=== PATIENT | female | born 1990 | race Caucasian/White ===

== ENCOUNTER 2019-02-18 13:38 | Outpatient (CLI) | payer OTHER, SELFPAY ==
[2019-02-18 15:27] LABS: Basophils % 0.1 %; Eosinophils # 0.2 10^3/uL (0.0-0.8); Eosinophils % 1.9 %; Hematocrit 37.8 % (37.0-47.0); Hemoglobin 12.6 g/dL (11.5-15.3); Lymphocytes % 19.2 %; Mean Corpuscular HGB Conc 33.3 g/dL (30.0-36.0); Mean Corpuscular Hemoglobin 30.1 pg (28.0-34.0); Mean Corpuscular Volume 90.2 fL (81-99); Mean Platelet Volume 9.9 fL (7.4-10.4); Monocytes # 0.5 10^3/uL (0.2-0.9); Monocytes % 4.8 %; Neutrophils # 7.8 10^3/uL (1.8-7.7); Neutrophils % 73.4 %; Nucleated Red Blood Cells % 0 %; Platelet Count 382 10^3/cmm (130-400); Red Blood Count 4.19 10^6/uL (4.1-5.3); Red Cell Distribution Width 12.9 % (12.1-15.1); White Blood Count 10.6 10^3/uL (4.0-10.0)
[2019-02-18 15:47] VITALS: BMI 44.9
[2019-02-18 16:12] LABS: Alanine Aminotransferase 15 U/L (0-33); Albumin Level 3.4 g/dL (3.5-5.2); Alkaline Phosphatase 89 IU/L (35-105); Anion Gap 17.6 (5-19); Aspartate Amino Transferase 14 U/L (0-32); Blood Urea Nitrogen 4 mg/dL (6-20); Calcium 9.4 mg/Dl (8.6-10.0); Carbon Dioxide 20 mmol/L (22-29); Chloride 101 mmol/L (98-107); Globulin 3.2 g/dL (1.3-4.6); Glomerular Filtration Rate 192.9 mL/min (90-130); Glucose 86 mg/dL (74-109); Potassium 3.6 mmol/L (3.5-5.1); Sodium 135 mmol/L (136-145); Thyroid Stimulating Hormone 2.03 uIU/mL (0.27-4.20); Total Bilirubin 0.3 mg/dL (0.15-1.2); Total Protein 6.6 g/dL (6.6-8.7); Uric Acid 3.7 mg/dL (2.4-5.7)
[2019-02-18 16:23] LABS: Glucose Urine UA Norm (Normal); Ketones Urine 1+ (Negative); Protein Urine Neg (Negative); Urine Appearance Cloudy (CLEAR); Urine Color Yellow (Yellow); pH Urine 5 (5-7)
[2019-02-18 16:24] LABS: Bilirubin Urine 1+ (NEGATIVE); Blood Urine Neg (Negative); Nitrate Urine Negative (Negative); Urobilinogen Urine 1 mg/dL (Negative)
[2019-02-18 16:25] LABS: Add Urine Microscopic? YES; Amorphous Sediment Urine 4+; Bacteria Urine 1+; Leukocyte Esterase Urine Negative (Negative)
[2019-02-18 16:26] LABS: Add Urine Culture? No; Coarse Granular Casts Urine 0-4 /lpf
[2019-02-18 16:39] LABS: Urine Creatinine 340 mg/dL (28-217)
[2019-02-18 16:44] VITALS: BP 112/69; PULSE 90
[2019-02-18 16:59] VITALS: BP 113/70; PULSE 96
[2019-02-18 17:24] LABS: UPRO/UCREAT Ratio 0.07 mg/mg CR; Urine Protein Random 24 mg/dL
[2019-02-18 17:25] VITALS: BP 113/70; PULSE 96; RESP 16; TEMP 36.9
== END 2019-02-18 17:03 | disposition home or self-care (01) ==
PROVIDERS: Family Provider Family Medicine; PCP Family Medicine; Visit Provider Family Medicine
DX: O16.9 Unspecified maternal hypertension, unspecified trimester (principal); Z3A.00 Weeks of gestation of pregnancy not specified
CPT/HCPCS: 36415; 80053; 81003; 82570; 84156; 84443; 84550; 85025

== ENCOUNTER 2019-03-05 07:46 | Outpatient (CLI) | payer OTHER, SELFPAY ==
--- NOTE | 2019-03-05 08:00 | US_ITS ---
WS: [id number] LIMITED OBSTETRICAL ULTRASOUND HISTORY: GESTATIONAL DIABETES/FOLLOW UP GROWTH CHECK COMPARISON: 12/11/2018, 01/17/2019 at 02/04/2019 Presentation: Vertex. Cervix: Closed and normal length. 5.0 cm in length. Placenta: Posterior, no previa or abruption. Grade: 1 HEART: FHR of 138 BPM. measurements: BPD = 8.0 cm = 31w6d HC = 29.4 cm = 32w3d AC = 28.2 cm = 32w2d FL = 6.2 cm = 32w0d Visually normal amount of amniotic fluid. EFW: 1916 g; 57 %. AGA by ultrasound: 32w1d MARLON by ultrasound: 04/29/2019 Appropriate growth since the second trimester ultrasound. US/[place] [id number] IMPRESSION: 1. Single intrauterine gestation of 32 weeks 1 day with an EDC of 04/29/2019. 2. Appropriate growth since the second trimester ultrasound of 12/11/2018 ic h is the initial ultrasound evaluation for comparison purposes. 3. No macrosomia. 4. Normal weight at the 57th percentile for age.
== END 2019-03-05 07:47 | disposition home or self-care (01) ==
LOC: RAD 07:48
PROVIDERS: Family Provider Family Medicine; PCP Family Medicine; Visit Provider Family Medicine
DX: O24.419 Gestational diabetes mellitus in pregnancy, unspecified control (principal); Z3A.32 32 weeks gestation of pregnancy
CPT/HCPCS: 76816

== ENCOUNTER 2019-04-07 13:50 | Outpatient (CLI) | payer OTHER, SELFPAY ==
[2019-04-07 13:50] VITALS: BMI 46.5
[2019-04-07 14:08] VITALS: BP 119/69; PULSE 105; RESP 17; TEMP 36.6
[2019-04-07 14:23] VITALS: BP 108/59; PULSE 110; RESP 16
== END 2019-04-07 14:42 | disposition home or self-care (01) ==
PROVIDERS: Family Provider Family Medicine; PCP Family Medicine; Visit Provider Family Medicine
DX: O24.419 Gestational diabetes mellitus in pregnancy, unspecified control (principal); Z3A.00 Weeks of gestation of pregnancy not specified
CPT/HCPCS: 59025; 99211

== ENCOUNTER 2019-04-09 08:54 | Outpatient (CLI) | payer OTHER, SELFPAY ==
--- NOTE | 2019-04-09 08:59 | US_ITS ---
WS: [id number] LIMITED OBSTETRICAL ULTRASOUND HISTORY: GESTATIONAL DIABETES COMPARISON: 03/05/2019, 12/11/2018 Presentation: Cephalic. Cervix: Closed and normal length. Placenta: Posterior, no previa or abruption. Grade: 2 HEART: FHR of 133 BPM. measurements: BPD = 9.2 cm = 37w3d HC = 32.9 cm = 37w3d AC = 33.5 cm = 37w3d FL = 7.3 cm = 37w3d Amniotic fluid index is normal visually. EFW: 3205 g; 76rd %. AGA by ultrasound: 37w3d MARLON by ultrasound: 04/27/2019 Measurements are internally concordant. Appropriate growth since the second trimester ultrasound that was the initial ultrasound performed for review. [place] [id number] IMPRESSION: 1. Single intrauterine gestation of 37 weeks 3 days and EDC of 04/27/2019. 2. Normal growth with no asymmetry or macrosomia. 3. weight at the 76th percentile for age.
== END 2019-04-09 08:55 | disposition home or self-care (01) ==
LOC: RAD 08:56
PROVIDERS: Family Provider Family Medicine; PCP Family Medicine; Visit Provider Family Medicine
DX: O24.419 Gestational diabetes mellitus in pregnancy, unspecified control (principal); Z3A.37 37 weeks gestation of pregnancy
CPT/HCPCS: 76816

== ENCOUNTER 2019-04-10 17:35 | Outpatient (CLI) | payer OTHER, SELFPAY ==
[2019-04-10 17:52] VITALS: BP 105/54; PULSE 96
[2019-04-10 17:55] VITALS: BMI 47.5
== END 2019-04-10 18:33 | disposition home or self-care (01) ==
PROVIDERS: Family Provider Family Medicine; PCP Family Medicine; Visit Provider Family Medicine
DX: O24.419 Gestational diabetes mellitus in pregnancy, unspecified control (principal); Z3A.00 Weeks of gestation of pregnancy not specified
CPT/HCPCS: 59025; 99211

== ENCOUNTER 2019-04-14 17:35 | Outpatient (CLI) | payer OTHER, SELFPAY ==
[2019-04-14 18:27] VITALS: BP 126/65; PULSE 101; RESP 18; TEMP 36.7; BMI 47.0
[2019-04-14 18:28] VITALS: BP 0/0; BP 124/81; BP 126/65; PULSE 101; PULSE 94
== END 2019-04-14 17:36 | disposition home or self-care (01) ==
LOC: OPOB 17:50
PROVIDERS: Family Provider Family Medicine; PCP Family Medicine; Visit Provider Family Medicine
DX: O24.419 Gestational diabetes mellitus in pregnancy, unspecified control (principal); Z3A.00 Weeks of gestation of pregnancy not specified
CPT/HCPCS: 59025

== ENCOUNTER 2019-04-19 19:53 | Observation (INO) | payer OTHER, SELFPAY ==
[2019-04-19 20:10] VITALS: TEMP 37
[2019-04-19 20:18] VITALS: BP 124/64; PULSE 105
[2019-04-19 21:18] VITALS: BP 116/74; PULSE 102
[2019-04-19] MEDS: miSOPROStol 100 mcg tablet 25 MCG VAGINAL (21:23)
[2019-04-19 21:37] LABS: Basophils % 0.1 %; Eosinophils # 0.1 10^3/uL (0.0-0.8); Eosinophils % 1.2 %; Hematocrit 38.4 % (37.0-47.0); Hemoglobin 12.6 g/dL (11.5-15.3); Lymphocytes # 2.2 10^3/uL (0.8-4.8); Lymphocytes % 20.1 %; Mean Corpuscular HGB Conc 32.8 g/dL (30.0-36.0); Mean Corpuscular Hemoglobin 29.3 pg (28.0-34.0); Mean Corpuscular Volume 89.3 fL (81-99); Mean Platelet Volume 10.1 fL (7.4-10.4); Monocytes # 0.5 10^3/uL (0.2-0.9); Monocytes % 4.8 %; Neutrophils % 73.3 %; Nucleated Red Blood Cells % 0 %; Platelet Count 354 10^3/cmm (130-400)
[2019-04-19 21:48] VITALS: BP 113/69; PULSE 94
[2019-04-19 22:12] VITALS: BMI 42.9
[2019-04-19 22:18] VITALS: BP 123/80; PULSE 85
[2019-04-19 22:51] LABS: Glucose Point of Care 94 mg/dL (70-110)
[2019-04-19 23:30] VITALS: BP 130/71; PULSE 93
[2019-04-20] VITALS (18 sets, daily range): BP systolic 0–145; BP diastolic 0–88; PULSE 67–107; RESP 18; TEMP 36.5–36.9
[2019-04-20] MEDS: lactated ringers 1,000 ML 125 ML IV (04:45)
[2019-04-20 06:55] LABS: Glucose Point of Care 87 mg/dL (70-110)
[2019-04-20 08:21] LABS: Glucose Point of Care 124 mg/dL (70-110)
[2019-04-20] MEDS: miSOPROStol 100 mcg tablet 25 MCG VAGINAL (08:26)
--- NOTE | 2019-04-20 12:30 | PM.OBGYHP ---
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 She presented last evening at 38-1/2 weeks gestation for cervical ripening and induction of labor secondary to gestational diabetes requiring insulin. Her course has also been complicated by obesity, hypothyroidism, symptomatic cholelithiasis and rubella nonimmune status. She is done very well with her weight having gained less than 15 pounds. She has been on 10 units of Levemir twice daily with good control. testing has been reassuring, and her 36-week growth scan revealed an estimated weight of 7-1/2 pounds. She has not had any contractions nor bleeding or leakage of fluid. Present Details : 1 Para: 0 Date of Last Menstrual Period: 07/23/18 Calculated Date of Delivery: 04/29/19 Gestational Age Based on Last Menstrual Period: 38 Dating criteria OB: LMP confirmed by 2nd trimester US care: good care Ultrasounds: normal mid trimester US Obstetrical complications: gestational diabetes (Requiring insulin) Medical complications OB: gastrointestinal (Symptomatic cholelithiasis) and other (Obesity, hypothyroidism) Labs Blood type OB HPI: O (+) positive Rubella: Non-Immune RPR: Negative GBS: Negative HBsAG: Negative Other Lab Information: Antibody screen: Negative Hemoglobin: Initially 14.3, 28-week recheck 12.3 Platelets: 435 Urine culture: Negative TSH: First trimester 3.22, most recent 1 not listed but within guidelines for third trimester Hepatitis C antibody: Negative HIV screen: Negative Pap: Normal GC/Chlamydia: Negative/negative Quad screen: Negative 1 hour GTT: Requiring 3-hour diagnostic testing 3-hour GTT: Fasting 102, 1 hour 235, 2-hour 169, 3-hour 89 Review of Systems Const: Denies: fever : Denies: vaginal odor, vaginal bleeding, vaginal discharge or pelvic pain Medications/Allergies Home Medications Medication Instructions Recorded Confirmed Last Taken Type Levemir U-100 Insulin 10 unit SUBCUT BID 04/20/19 04/20/19 04/20/19 10:30 History Allergies Allergy/AdvReac Type Severity Reaction Status Date / Time No Known Allergies Allergy Verified 02/18/19 15:50 [facility] FOREST ECOLOGIST Medical History (Updated 04/20/19 @ 12:53 by Mary Allan MD) Anxiety disorder Depression Hypothyroidism Obesity Symptomatic cholelithiasis Surgical History H/O adenoidectomy History of oral surgery Social History Smoking and tobacco status: never smoked Alcohol intake: never Household members: spouse Current occupational status: employed History History 1 Term 0 Miscarriages/Ectopic 0 0 Living Children 0 Vitals/I&O/Wt Last Vital Signs Temp 98.5 F 04/20/19 10:30 Pulse 91 04/20/19 12:21 Resp 18 04/20/19 10:30 BP 145/88 04/20/19 12:21 Weight last 48 hrs Weight 274 lb Physical Exam Narrative: EXAM NARRATIVE: heart tones have a baseline in the 120s with moderate variability, many accelerations and no decelerations. Patient had no contractions upon arrival last evening. Please refer to record for complete history and physical. Const: COMMON NORMALS: no apparent distress, oriented x3 and alert NUTRITIONAL APPEARANCE: obese morbidly obese : MANUAL OB EXAM: dilated 1 cm, effaced (20%), station high and other (Ballotable) Neuro: COMMON NORMALS: oriented x3 SENSORIUM/ORIENTATION: Yes alert Psych: COMMON NORMALS: mental status grossly normal, thought process normal, cooperative, affect normal, speech normal and activity/motor behavior normal SPEECH: Yes normal speech THOUGHT PROCESS: normal thought process Data : 04/19/19 21:30 A&P Assessment and plan (1) Encounter for induction of labor: Cytotec x2 with the low-dose morphine Phenergan sleeper as needed. All of this was discussed in her office appointment prior to her arrival in the labor room. Status: Acute Code(s): Z34.90 - Encounter for supervision of normal , unspecified, unspecified trimester (2) 38 weeks gestation of : Status: Acute Code(s): Z3A.38 - 38 weeks gestation of (3) Gestational diabetes mellitus in , insulin controlled: Patient will continue with her self-monitoring of blood glucose as she would at home as long as she continues to eat. She took her Levemir last evening as per her home regimen and will check her bedside glucose 1 hour after each meal and fasting with the goals of less than or equal to 140 and less than or equal to 90 respectively. Once she is actively laboring we will alter her p.o. status and will check bedside glucose every 2-4 hours depending on level of control. Status: Acute Code(s): O24.414 - Gestational diabetes mellitus in , insulin controlled (4) Obesity complicating in third trimester: Patient gained less than 15 pounds during her . Status: Acute Code(s): O99.213 - Obesity complicating , third trimester (5) Hypothyroidism affecting in third trimester: TSH has been within goal range for each trimester and will be checked . Status: Acute Code(s): O99.283 - Endocrine, nutritional and metabolic diseases complicating , third trimester; E03.9 - Hypothyroidism, unspecified (6) Rubella non-immune status, antepartum: Rubella immunization planned Status: Acute Code(s): O99.89 - Other specified diseases and conditions complicating , childbirth and the puerperium; Z28.3 - Underimmunization status (7) Anxiety with depression: Patient stopped her Wellbutrin and BuSpar when she found out she was and has elected not to take anything during the and has been stable. We plan sertraline as she plans to breast-feed. Status: Acute Code(s): F41.8 - Other specified anxiety disorders (8) Nausea and vomiting of , antepartum: This began as simple nausea and vomiting of but then has also been complicated by intermittent symptomatic cholelithiasis for which she has seen [facility]. They plan cholecystectomy sometime after delivery if still symptomatic. Status: Acute Code(s): O21.9 - Vomiting of , unspecified Attestations Medical Necessity Statement*: As patient is receiving Cytotec for cervical ripening she will require observation stay overnight. Coding Level of Care Code Acute Pumper Hand for Cameron Flores Diagnoses Encounter for induction of labor Z34.90 38 weeks gestation of Z3A.38 Gestational diabetes mellitus in , insulin controlled O24.414 Obesity complicating in third trimester O99.213 Hypothyroidism affecting in third trimester O99.283; E03.9 Rubella non-immune status, antepartum O99.89; Z28.3 Anxiety with depression F41.8 Nausea and vomiting of , antepartum O21.9
--- NOTE | 2019-04-20 12:58 | P.DS_ITS ---
Discharge Providers POWDERER Date of Admission: 04/19/19 19:53 Date of Discharge: 04/20/19 Attending Provider at Admission: Mary Allan MD Attending Provider at Discharge: Mary Allan MD Primary Care Provider: Mary Allan MD Diagnoses at Discharge Discharge Diagnosis (1) Encounter for induction of labor: Status: Acute (2) 38 weeks gestation of : Status: Acute (3) Gestational diabetes mellitus in , insulin controlled: Status: Acute (4) Obesity complicating in third trimester: Status: Acute (5) Hypothyroidism affecting in third trimester: Status: Acute (6) Rubella non-immune status, antepartum: Status: Acute (7) Anxiety with depression: Status: Acute (8) Nausea and vomiting of , antepartum: Status: Acute Reason for Visit Reason for Visit: Reason For Visit: induction Hospital Course Hospital Course: Patient arrived last evening for cervical ripening and induction of labor secondary to her gestational diabetes requiring insulin. She took her evening Levemir dose of 10 units last evening and then received a dose of Cytotec vaginally. She began sravan fairly regularly although mildly bu t did not qualify for a second dose of Cytotec until this morning. Meanwhile she took the low-dose Phenergan morphine sleeper but was still unable to rest much. The first dose of Cytotec brought no cervical change. This morning she ate breakfast and blood sugar after her breakfast was 120s. Patient then had a second dose of Cytotec placed this morning and continued to contract every 2 minutes, again of somewhat mild intensity rating them a 5 out of 10. She is tired. Upon cervical exam she had made no cervical change with the second dose of Cytotec. Baby's heart rate tracing remained category 1 throughout her stay. Discharge Summary: Since she had had 2 doses of Cytotec with essentially no cervical change and her cervix at a tight 1 cm, 20% effaced high and ballotable, her options included continuing with another dose of Cytotec providing her contractions spaced out a bit more versus going home to rest with close outpatient follow-up. Patient had no problems deciding that she would like to go home and see me in the office on Monday April 22, 2019 for further evaluation. Physical Exam Narrative: EXAM NARRATIVE: heart tones remained category 1. : MANUAL OB EXAM: dilated 1 cm, effaced (20%) and station high (And ballotable) Discharge Data Data Completed and Pending: Labs from last 24 hours 04/20/19 04/20/19 04/19/19 08:18 06:51 22:42 WBC RBC Hgb Hct MCV MCH MCHC RDW Plt Count MPV Neut % (Auto) Lymph % (Auto) [place] % (Auto) Eos % (Auto) Baso % (Auto) Neut # (Auto) Lymph # (Auto) [place] # (Auto) Eos # (Auto) Baso # (Auto) Nucleated RBC % (a uto) Nucleated RBCs # POC Glucose 124 87 94 04/19/19 21:30 WBC 11.0 H RBC 4.30 Hgb 12.6 Hct 38.4 MCV 89.3 MCH 29.3 MCHC 32.8 RDW 13.0 Plt Count 354 MPV 10.1 Neut % (Auto) 73.3 Lymph % (Auto) 20.1 [place] % (Auto) 4.8 Eos % (Auto) 1.2 Baso % (Auto) 0.1 Neut # (Auto) 8.0 H Lymph # (Auto) 2.2 [place] # (Auto) 0.5 Eos # (Auto) 0.1 Baso # (Auto) 0.0 Nucleated RBC % (a uto) 0 Nucleated RBCs # 0.0 POC Glucose Vitals: Last Vital Signs Temp 98.5 F 04/20/19 10:30 Pulse 93 04/20/19 12:46 Resp 18 04/20/19 10:30 BP 135/81 04/20/19 12:46 Discharge Plan Discharge Patient Disposition: Home, Self-Care Condition: Stable Prescriptions: Continued prenat.vits,ovidio,yto-hiou-zwatg Tablet 1 tab PO ONCE RF: 0 Bonjesta 20-20 mg tablet,IR,delayed rel,biphasic 1 - 2 tab PO .HS RF: 0 levothyroxine 25 mcg capsule 25 mcg PO ONCE RF: 0 Levemir U-100 Insulin 100 unit/mL Solution 10 unit SUBCUT BID RF: 0 Discharge Orders: Discharge Order (Routine); Ordered 04/20/19 Ordered By: Mary Allan Referrals: Mary Allan MD [Primary Care Provider] - (CALL Sunday AND MAKE APPOITMENT FOR Sunday.) Discharge Diet: Diabetic Discharge Activity: Resume usual activity Patient Instructions: OB Undelivered Discharge Discharge Attestations POWDERER Time Spent in Discharge Care*: less than 30 min Specific Discharge Activities: Specific discharge activities: educating patient, documenting/other paperwork and evaluating patient/reviewing data Status at Discharge: Cognitive status at discharge: cognitively intact , Behavioral status at discharge: cooperative , Functional status at discharge: independent ambulation Overall status at discharge: patient is progressing back to baseline (She is having mild contractions which are becoming less frequent.) Coding Level of Care Code Acute Course Developer for Chg Fwd Diagnoses Encounter for induction of labor Z34.90 38 weeks gestation of Z3A.38 Gestational diabetes mellitus in , insulin controlled O24.414 Obesity complicating in third trimester O99.213 Hypothyroidism affecting in third trimester O99.283; E03.9 Rubella non-immune status, antepartum O99.89; Z28.3 Anxiety with depression F41.8 Nausea and vomiting of , antepartum O21.9
== END 2019-04-20 13:00 | disposition home or self-care (01) | DRG 833 ==
PROVIDERS: Admitting Provider Family Medicine; Family Provider Family Medicine; PCP Family Medicine; Visit Provider Family Medicine
DX: O61.0 Failed medical induction of labor (principal); Z3A.38 38 weeks gestation of pregnancy; O99.343 Other mental disorders complicating pregnancy, third trimester; O99.213 Obesity complicating pregnancy, third trimester; O99.283 Endocrine, nutritional and metabolic diseases complicating pregnancy, third trimester; O24.414 Gestational diabetes mellitus in pregnancy, insulin controlled; E03.9 Hypothyroidism, unspecified; F41.8 Other specified anxiety disorders; O21.9 Vomiting of pregnancy, unspecified
CPT/HCPCS: 12345; 36415; 36416; 59025; 82962; 85025; 96372; 99211; G0378; G0379; J1815

== ENCOUNTER 2019-04-23 06:55 | Inpatient (IN) | payer OTHER, SELFPAY ==
[2019-04-23] VITALS (127 sets, daily range): BP systolic 0–160; BP diastolic 0–90; PULSE 67–135; RESP 14–20; TEMP 36.6–37.2; O2SAT 94–100; BMI 42.9
[2019-04-23 08:33] LABS: Glucose Point of Care 113 mg/dL (70-110)
[2019-04-23] MEDS: dextrose 5%-lactated ringers 1,000 ML 125 ML IV (08:46)
[2019-04-23] MEDS: oxytocin 30 UNIT/500 ML BAG IV (08:48)
--- NOTE | 2019-04-23 09:09 | P.HP_ITS ---
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 She presents at 39-1/7-week gestation for induction of labor secondary to gestational diabetes requiring insulin. Patient was here in the labor room the evening of 04/19/2019 and received 2 doses of Cytotec that evening in the financial reporting director hours of 04/20/2019. She experienced minimal cervical change and had contracted too frequently to receive another dose during that time. Given the lack of cervical change she elected to go home and rest. She then return to clinic the morning of 04/22/2019 and was found to be 2-1/2 to 3 cm dilated, 90% effaced and -3 station and sravan with decreased frequency and intensity from when she was discharged the morning of 04/20/2019. Aside from her gestational diabetes requiring insulin, her course has been complicated by obesity in , hypothyroidism and nausea and vomiting of , some of which can be attributed to symptomatic cholelithiasis. Present Details : 1 Para: 0 Date of Last Menstrual Period: 07/23/18 Calculated Date of Delivery: 04/29/19 Gestational Age Based on Last Menstrual Period: 39 Dating criteria OB: LMP confirmed by 2nd trimester US care: good care Ultrasounds: normal mid trimester US Obstetrical complications: gestational diabetes Medical complications OB: gastrointestinal (Intermittently symptomatic cholelithiasis), psychiatric (Anxiety and depression) and other (Obesity, hypothyroidism) Review of Systems Const: Denies: fever : Reports: pelvic pain (Consistent with intermittent contractions since 3 AM this morning); Denies: vaginal odor, vaginal bleeding or vaginal discharge Medications/Allergies Allergies Allergy/AdvReac Type Severity Reaction Status Date / Time No Known Allergies Allergy Verified 04/23/19 09:18 [facility] RADIATION ONCOLOGY MANAGER Medical History (Updated 04/23/19 @ 09:31 by Mary Allan MD) Anxiety disorder Depression Hypothyroidism Obesity Symptomatic cholelithiasis Surgical History H/O adenoidectomy History of oral surgery Family History Grandfather Cancer Colon cancer Other Diabetes Heart disease Denies family history of Anesthesia complication Bleeding disorder Social History Smoking and tobacco status: never smoked Alcohol intake: never Household members: spouse Current occupational status: employed History History 1 Term 0 Miscarriages/Ectopic 0 0 Living Children 0 Vitals/I&O/Wt Last Vital Signs Pulse 94 04/23/19 08:56 BP 127/80 04/23/19 08:56 Physical Exam Narrative: EXAM NARRATIVE: heart tones are category 1 with a normal baseline, moderate variability, many accelerations and no decelerations. Patient has spontaneous contractions which are irregular and mild to moderate. For complete physical examination please refer to her record. Const: COMMON NORMALS: no apparent distress, oriented x3, healthy appearing, alert and well nourished : MANUAL OB EXAM: dilated 3 cm, effaced (95%), station -1 and other (Vertex) Neuro: COMMON NORMALS: oriented x3 SENSORIUM/ORIENTATION: Yes alert Psych: COMMON NORMALS: mental status grossly normal, thought process normal, cooperative, affect normal, speech normal and activity/motor behavior normal SPEECH: Yes normal speech THOUGHT PROCESS: normal thought process Data Other Labs: INITIAL LABS: Blood Type: O+ D (Rh) Type: Positive Antibody Screen: Negative HCT/HBG: Initially over 14 and on 26 to 28-week recheck greater than 12 Pap Test: Normal Rubella: Nonimmune VDRL: Negative Urine Culture/Screen: Negative HBsAg: Negative HIV Counseling/Testing: Negative Influenza Shot: [] Hepatitis C: Negative Chlamydia: Negative GC: Negative MSAFP/Multiple Markers: Negative Diabetes Screen: Greater than 140 3 hour GTT (if screen abnormal): Diagnostic for gestational diabetes Tdap: Received Group B Strep (35-37 weeks): Negative A&P Assessment and plan (1) 39 weeks gestation of : Status: Acute Code(s): Z3A.39 - 39 weeks gestation of (2) Encounter for induction of labor: Patient has been sravan irregularly spontaneously since 3 AM this morning. She is made some cervical change since her exam yesterday in clinic. Therefore, this is more of an augmentation of her labor then a true induction. We will augment with Pitocin. We have discussed pain medication including fentanyl as well as an epidural. Patient is stated that she would like an epidural when the time comes. She denies need for anything at this point. Status: Acute Code(s): Z34.90 - Encounter for supervision of normal , unspecified, unspecified trimester (3) Gestational diabetes mellitus in , insulin controlled: Patient took her Levemir last evening and then held it this morning. Her post breakfast glucose was 113, so we held her Levemir this morning in anticipation of her not having much more p.o. prior to delivery. We will check a bedside glucose every 4 hours with a goal of keeping it less than 120. Status: Acute Code(s): O24.414 - Gestational diabetes mellitus in , insulin controlled (4) Anxiety with depression: Patient has not been on any medication for her anxiety and depression by her choice. However, once she delivers we are planning sertraline as she plans to breast-feed. Status: Acute Code(s): F41.8 - Other specified anxiety disorders (5) Rubella non-immune status, antepartum: Rubella immunization Status: Acute Code(s): O99.89 - Other specified diseases and conditions complicating , childbirth and the puerperium; Z28.3 - Underimmunization status (6) Hypothyroidism affecting in third trimester: TSH has been within goal range per trimester throughout her , and we plan to check it again . Status: Acute Code(s): O99.283 - Endocrine, nutritional and metabolic diseases complicating , third trimester; E03.9 - Hypothyroidism, unspecified (7) Obesity complicating in third trimester: Patient has gained less than 15 pounds during this . Status: Acute Code(s): O99.213 - Obesity complicating , third trimester (8) Nausea and vomiting of , antepartum: We will treat any nausea and vomiting should it occur during her labor. Status: Acute Code(s): O21.9 - Vomiting of , unspecified Attestations Medical Necessity Statement*: As patient is spontaneously sravan and is having her labor augmented secondary to gestational diabetes requiring insulin, she will require inpatient hospitalization throughout this time. Coding Level of Care Code Acute Second Ride Fare Collector for Chg Fwd Exam Expanded Problem Focused Diagnoses 39 weeks gestation of Z3A.39 Encounter for induction of labor Z34.90 Gestational diabetes mellitus in , insulin controlled O24.414 Anxiety with depression F41.8 Rubella non-immune status, antepartum O99.89; Z28.3 Hypothyroidism affecting in third trimester O99.283; E03.9 Obesity complicating in third trimester O99.213 Nausea and vomiting of , antepartum O21.9
[2019-04-23 09:58] LABS: Basophils % 0.2 %; Eosinophils # 0.2 10^3/uL (0.0-0.8); Eosinophils % 2.1 %; Hemoglobin 12.9 g/dL (11.5-15.3); Mean Corpuscular HGB Conc 33.1 g/dL (30.0-36.0); Mean Corpuscular Hemoglobin 29.9 pg (28.0-34.0); Mean Corpuscular Volume 90.3 fL (81-99); Mean Platelet Volume 10.4 fL (7.4-10.4); Monocytes # 0.5 10^3/uL (0.2-0.9); Monocytes % 4.9 %; Neutrophils # 8.3 10^3/uL (1.8-7.7); Neutrophils % 74.3 %; Nucleated Red Blood Cells % 0 %; Platelet Count 314 10^3/cmm (130-400); Red Blood Count 4.32 10^6/uL (4.1-5.3); Red Cell Distribution Width 12.9 % (12.1-15.1); White Blood Count 11.1 10^3/uL (4.0-10.0)
[2019-04-23] MEDS: fentaNYL 50 mcg/mL INJ 2mL IV (11:28)
[2019-04-23] MEDS: lactated ringers 1,000 ML 999 ML IV ×2 (11:30→12:57)
--- NOTE | 2019-04-23 12:07 | P.ANESASSM_ITS ---
Pre-Anesthetic Assessment Pre-Anesthetic Assessment: Height/Weight: Height 1.7 m Pulse Resp BP 79 20 H 123/74 04/23/19 11:56 04/23/19 11:28 04/23/19 11:56 Was Beta Mendel taken within 24 hours: N/A Social: Social History: No alcohol and No tobacco Exam: Pre-Anes Outpt Exam: alert, oriented x 3, clear to auscultation bilaterally and regular rate & rhythm Airway: Submandibular: WNL Cervical ROM: WNL MP: 2 Dentition: Full Pulmonary: Pulmonary: None reported CV/HEM: CV/HEM: None reported : : None reported Hepatic: Hepatic: None reported GI: GI: None reported Metabolic: Metabolic: DM (Gestational DM) and Thyroid Musc/skel: Musc/skel: None reported Neuropsych: Neuropsych: Depression Anesthetic Plan: ASA status: 2 Other: Epidural Risk of > 500 ml blood loss (7ml/kg in children): No Meds/Allergies Current Medications: Current Medications Generic Name Dose Route Start Last Admin Trade Name Freq PRN Reason Stop Dose Admin Fentanyl 25 - 100 mcg 04/23/19 07:50 04/23/19 11:28 Sublimaze IV 25 mcg Q1H PRN Administration SEVERE PAIN Oxytocin 30 unit in 500 ml s @ 1 mls/hr 04/23/19 08:00 04/23/19 10:45 Pitocin IV 7 milliunit/min .Q24H MARY 7 mls/hr Titration Protocol 1 MILLIUNIT/MIN Dextrose/Lactated Ringer's 1,000 mls @ 125 m ls/hr 04/23/19 08:00 04/23/19 11:30 Dextrose 5%-Lact ated Ringers IV 0 mls/hr .Q8H MARY Infusion Lactated Ringer's 1,000 mls @ 999 m ls/hr 04/23/19 11:26 04/23/19 11:30 Lactated Ringers IV 04/23/19 12:26 999 mls/hr .Q1H1M ONE Administration PFSH Anesthesia PFSH: Medical History (Updated 04/23/19 @ 09:31 by Mary Allan MD) Anxiety disorder Depression Hypothyroidism Obesity Symptomatic cholelithiasis Surgical History H/O adenoidectomy History of oral surgery Family History Grandfather Cancer Colon cancer Other Diabetes Heart disease Denies family history of Anesthesia complication Bleeding disorder Social History Smoking and tobacco status: never smoked Alcohol intake: never Household members: spouse Current occupational status: employed Female Reproductive History: Date of last menstrual period: 07/23/18 : 1 Data Anesthesia CBC & Chem 7: 04/23/19 09:48 Other Labs: Laboratory Results - last 48 hr 04/23/19 04/23/19 08:11 09:48 WBC 11.1 H RBC 4.32 Hgb 12.9 Hct 39.0 MCV 90.3 MCH 29.9 MCHC 33.1 RDW 12.9 Plt Count 314 MPV 10.4 Neut % (Auto) 74.3 Lymph % (Auto) 18.0 [place] % (Auto) 4.9 Eos % (Auto) 2.1 Baso % (Auto) 0.2 Neut # (Auto) 8.3 H Lymph # (Auto) 2.0 [place] # (Auto) 0.5 Eos # (Auto) 0.2 Baso # (Auto) 0.0 Nucleated RBC % (auto) 0 Nucleated RBCs # 0.0 POC Glucose 113 Cardiac Studies: No Data to Display
[2019-04-23] MEDS: ePHEDrine 50 mg/mL Inj 25 MG IM (12:51)
[2019-04-23] MEDS: ePHEDrine 50 mg/mL Inj 10 MG IVP (13:00)
[2019-04-23] MEDS: ondansetron 2 mg/ML SDV 2 mL 4 MG IVP (13:01)
--- NOTE | 2019-04-23 13:01 | ANES.PROC ---
Anesthesia Procedures Procedure/Date: 04/23/19 Epidural: Time Out Performed: Yes Consents Signed: Procedure Consent Consent: from patient Lumbar Level: L2-L3 Epidural position: sitting Epidural procedure: sterile prep of area, 1% lidocaine to numb the area, 18 g needle, negative for paresthesia passed, test dose given (negative), 1.5% xylocaine 1:200k epi, placed PCEA, sterile dressing applied and 0.2% Ropiavacaine @ mls/hr (10mls/hr 5mls every 15mins) Additional Comments: ALAYNA at 6cms cath at 11cms
--- NOTE | 2019-04-23 13:23 | P.PN_ITS ---
FRONT DESK AUXILIARY Subjective Subjective: Interval history: Patient began Pitocin per moderate dose protocol this morning shortly after 9 AM. She has been sravan as frequently as every 1-1/2 to 2 minutes on just 7 milliunits/min of the Pitocin. Her contractions increased in intensity, and, upon recheck of her cervix, she was found to be 5 cm dilated. At that time she opted for an epidural and has just received it and is comfortable. She did have a prolonged deceleration shortly after the epidural when her blood pressure dropped to 60s over 40s. This resolved with ephedrine and maternal resuscitative measures. Labor: Pain Control: epidural Dilation (cm): 5 Effacement (%): 100 Station: -1 Amniotic Membrane Status: Intact Contraction Pattern: Regular Contraction Intensity: Strong/Firm Status: Category l Vitals/I&O/Wt Last Vital Signs Pulse 104 H 04/23/19 13:19 Resp 20 H 04/23/19 11:28 BP 154/62 04/23/19 13:19 Pulse Ox 98 04/23/19 13:21 04/22/19 04/23/19 04/23/19 22:59 06:59 14:59 Intake Total 347.867 / 347.867 Balance 347.867 / 347.867 Physical Exam Narrative: EXAM NARRATIVE: heart tones have a baseline in the 130s to 140 with moderate variability, many accelerations and currently no decelerations. Contractions are every 1-1/2 to 2 minutes and strong. : MANUAL OB EXAM: dilated 5 cm, effaced fully, station -1 and other (Vertex, not ballotable) Data : 04/23/19 09:48 A&P Additional A&P Information Amniotomy was performed at 1317 and resulted in a moderate amount of clear fluid without odor. Patient is comfortable and may rest and will continue to observe her labor. Attestations Medical Necessity Statement*: As patient is laboring and has not yet delivered she will continue to need inpatient hospitalization. Coding Level of Care Code Acute Entry Level Manufacturing Engineer for Cameron Flores
[2019-04-23 16:43] LABS: Glucose Point of Care 92 mg/dL (70-110)
[2019-04-23 16:43] LABS: Glucose Point of Care 77 mg/dL (70-110)
--- NOTE | 2019-04-23 21:27 | P.PN_ITS ---
EXCELSIOR PICKER Subjective Subjective: Interval history: Patient experienced amniotomy at 1317 this afternoon and was 5 cm dilated 100% effaced and -1 station at the time. Within an hour she was 7 cm dilated, 100% effaced and -1 station. She then gradually dilated until she was complete which was in the 1800-hour at this evening. She has been pushing in various different positions for 2 hours. Labor: Pain Control: epidural Dilation (cm): 10 Effacement (%): 100 Station: +1 Amniotic Membrane Status: Ruptured Monitor Mode: External Contraction Pattern: Regular Contraction Intensity: Strong/Firm Status: Category l Vitals/I&O/Wt Last Vital Signs Temp 98.1 F 04/23/19 18:30 Pulse 107 H 04/23/19 19:52 Resp 18 04/23/19 18:30 BP 0/0 04/23/19 20:11 Pulse Ox 98 04/23/19 13:26 04/23/19 04/23/19 04/23/19 06:59 14:59 22:59 Intake Total 347.867 / 347.867 95 / 442.867 Output Total 200 / 200 Balance 347.867 / 347.867 -105 / 242.867 Weight last 48 hrs Weight 274 lb Physical Exam Narrative: EXAM NARRATIVE: heart tones have a baseline in the 150s with moderate variability, currently there are accelerations and no decelerations however since last note we have had some category 2 tracings. Patient is sravan every 1-1/2 to 2 minutes on her own as Pitocin has been discontinued. Urinary Catheter Management^: Mays: Cath Placed During This Visit: yes Reason for Continuing Indwelling Catheter: Other Urinary Catheter Date of Insertion: 04/23/19 Urinary Catheter Time of Insertion: 13:10 Data : 04/23/19 09:48 A&P Additional A&P Information Patient has been pushing in various different positions for over 2 hours. In the first hour she made progress from a -1 station to a +1 station. During the second hour she made no progress in station and had an increase in It early in the second hour. She pushed on all fours as well as 1 knee pushing and did various position changes without pushing for a period of time. Baby went through a period of minimal variability and had some variable and late decelerations early in the second stage. Dr. Melo has been called for section secondary to arrest of the second stage of labor. Mother and baby are stable. Attestations Medical Necessity Statement*: As patient has not yet delivered and is about to undergo section, she will require continued inpatient care. Coding Level of Care Code Acute [employer] Space Salesperson for Cameron Flores
[2019-04-23] MEDS: famotidine 20 mg/2 mL INJ IVP (21:36)
[2019-04-23] MEDS: metoclopramide 5 mg/mL SDV 2 mL 10 MG IV (21:36)
--- NOTE | 2019-04-23 23:44 | P.CONIM_ITS ---
Providers/Reason For Consult Consulting Physican/Specialty*: Brian Melo MD -consulting for section. Reason for Consult*: Arrest of descent with need for section Attending Physician: Mary Allan MD Primary Care Provider: Mary Allan MD History of Present Illness History of Present Illness Analisa Cook is a 28 year old at 39.1 weeks gestation. Her is complicated by gestational diabetes on Levemir, obesity, hypothyroidism, sym ptomatic cholelithiasis. The patient was brought in for induction of labor secondary to gestational diabetes. The patient's care and intrapartum course was managed by Dr. Allan. AROM was performed at 1317 on 04/23/2019. The patient was complete at 1810 on 04/23/2019. She began pushing at 1850 on 04/23/2019. The patient did not make sufficient change and by 2100, was still only in the +1 station. For this reason a section was called with the above risks of gestational diabetes. Review of Systems Narrative: The patient denies any fevers, active nausea, vomiting, chest pains, shortness of breath, cough. She admits to pain with contractions. Meds/Allergies Home Medications and Allergies Home Medications Medication Instructions Recorded Confirmed Type doxylamine 20 mg-pyridoxine 20 mg 1 - 2 tab PO .HS tab 02/14/19 04/23/19 History tablet,immediate and delayed release levothyroxine 25 mcg capsule 25 mcg PO ONCE 02/14/19 04/23/19 History prenat.vits,ovidio,git-ycke-aubct 1 tab PO ONCE 02/14/19 04/23/19 History Levemir U-100 Insulin 10 unit SUBCUT BID 04/20/19 04/23/19 History Allergies Allergy/AdvReac Type Severity Reaction Status Date / Time No Known Allergies Allergy Verified 04/23/19 09:18 Current Medications Current Medications Generic Name Dose Route Start Last Admin Trade Name Freq PRN Reason Stop Dose Admin Fentanyl 25 - 100 mcg 04/23/19 07:50 04/23/19 11:28 Sublimaze IV 25 mcg Q1H PRN Administration SEVERE PAIN Oxytocin 30 unit in 500 mls @ 1 mls/hr 04/23/19 08:00 04/23/19 10:45 Pitocin IV 7 milliunit/min .Q24H MARY 7 mls/hr Titration Protocol 1 MILLIUNIT/MIN Dextrose/Lactated Ringer's 1,000 mls @ 125 mls/hr 04/23/19 08:00 04/23/19 16:30 Dextrose 5%-Lactated Ringers IV 125 mls/hr .Q8H MARY Infusion Lactated Ringer's 1,000 mls @ 125 mls/hr 04/23/19 08:00 04/23/19 16:30 Lactated Ringers IV Infused .Q8H MARY Infusion Ropivacaine 200 mg in 100 mls @ 6 mls/hr 04/23/19 11:30 04/23/19 20:34 Naropin Premix EPIDURAL 10 mls/hr .[id number] MARY Administration Ondansetron HCl 4 mg 04/23/19 07:50 04/23/19 13:01 Zofran IVP 4 mg Q4H PRN Administration NAUSEA AND VOMITING PFSH Acute PFSH: Medical History Anxiety disorder Depression Hypothyroidism Obesity Symptomatic cholelithiasis Surgical History H/O adenoidectomy History of oral surgery Family History Grandfather Cancer Colon cancer Other Diabetes Heart disease Denies family history of Anesthesia complication Bleeding disorder Social History Smoking and tobacco status: never smoked Alcohol intake: never Household members: spouse Current occupational status: employed Female Reproductive History: Date of last menstrual period: 07/23/18 : 1 Vitals/I&O/Wt Last Vital Signs Temp 98.1 F 04/23/19 18:30 Pulse 116 H 04/23/19 21:45 Resp 18 04/23/19 18:30 BP 135/74 04/23/19 21:45 Pulse Ox 98 04/23/19 13:26 04/23/19 04/23/19 04/24/19 14:59 22:59 06:59 Intake Total 897.317 / 897.317 470 / 1367.317 Output Total 200 / 200 Balance 897.317 / 897.317 270 / 1167.317 Weight last 48 hrs Weight 274 lb Physical Exam Narrative: EXAM NARRATIVE: General: Alert and oriented x3 Eyes: Pupils equal round and reactive to light and accommodation Mouth: Mucous membranes moist, pharynx non-erythematous Cardiac: Regular rate and rhythm without murmurs Lungs: Clear to auscultation bilaterally without wheezes, crackles or rhonchi Abdomen: Soft, non-tender, fundus consistent with gestational age Extremities: +1 pitting edema in the bilateral lower extremities Urinary Catheter Management^: Mays: Cath Placed During This Visit: yes Reason for Continuing Indwelling Catheter: Other Urinary Catheter Date of Insertion: 04/23/19 Urinary Catheter Time of Insertion: 13:10 A&P Additional A&P Information The patient has arrest of descent after 2 hours of pushing. The patient has been in multiple positions to try and relieve this, however there is no improvement. For this reason the patient will be taken back for section. All questions were answered. The patient and her significant other are in agreement with the current plan of care. Consult Attestations Medical Necessity Statement: The patient will be here for greater than 2 midnights due to intrapartum and care after section. Coding Level of Care Code Acute Barrel Assembler Helper for Cameron Flores
--- NOTE | 2019-04-23 23:45 | PM.OP ---
Operative Report Date of procedure: April 23, 2019 Pre-op Diagnosis: 1. Intrauterine at 39.1 weeks gestation 2. Gestational diabetes on insulin 3. Hypothyroidism 4. Arrest of descent with concern for cephalopelvic disproportion 5. Obesity Post-op Diagnosis: 1. Intrauterine status post primary low transverse section at 39.1 weeks gestation 2. Gestational diabetes on insulin 3. Hypothyroidism 4. Arrest of descent with concern for cephalopelvic disproportion 5. Obesity 6. Delivery with healthy infant male weighing 7 pounds 9 ounces with Apgars of 8 and 10 7. OP positioning Post-op Findings: 1. Intact placenta with central umbilical cord insertion site. 2. Healthy male 3. Occiput posterior positioning of the infant. Procedure Done: Primary low transverse section Specimens removed/disposition: Placenta discarded Pathology: none sent Surgeon: Brian Melo MD Anesthesia: General and Epidural Estimated blood loss (mL): 850 Complications: None Condition: stable Brief History: The patient was admitted for induction of labor secondary to gestational diabetes. Please see Dr. Allan's note for full details. The patient did not have distant after 2 hours of pushing. There was concern for cephalopelvic disproportion and increased risk for shoulder dystocia due to gestational diabetes. For this reason I was consulted for section. Procedure: After informed consent was obtained, the patient was taken to the operating room and the patient was prepped and draped in normal sterile fashion in a dorsal supine position. Her epidural was bolused and adequate anesthesia was confirmed. At 2202 on 04/23/2019, a Pfannenstiel skin incision was made and carried through to the underlying layer of fascia using a scalpel. The fascial incision was then extended laterally using curved Mayos. The fascia was then grasped with Helena clamps and the underlying rectus muscles were dissected off taking care to avoid injury to the underlying tissues. The peritoneum was entered bluntly with one digit. It was then bluntly. The bladder blade was placed and the vesicouterine peritoneum was well below the lower uterine segment of the uterus. The uterine incision was made in the lower uterine segment in a transverse fashion with the scalpel at 2207. The amniotic membrane was entered bluntly and a small amount of clear fluid was noted. The infant's head delivered atraumatically without difficulty at 220 on 04/23/2019. There was no nuchal cord. The mouth and nose were suctioned. The rest of the infant delivered without difficulty. The infant was crying immediately upon delivery. The cord was clamped and cut and the infant was handed to the awaiting pediatric nurses. The placenta was then manually expressed. The uterus was then exteriorized from the abdomen and a wet lap was used to clear the uterus of clots and debris. The bladder blade was reinserted and the uterine incision was closed using 0 chromic in a running locking fashion. A second layer of the same suture was used in the same manner. The patient did have an inferior extension on the right. This was repaired using 0 chromic in a running fashion. This was closed in 2 layers. Excellent hemostasis was obtained. Next the posterior cul-de-sac was inspected and was cleared of any blood. The patient began to have pain associated with the surgery and she could not get comfortable with IV pain medications, so general anesthesia was given. The uterus was then placed back into the abdomen. The gutters were cleared of any further clots and debris and the uterine incision was again inspected and hemostasis was noted. The subfascial tissue was inspected for hemostasis. The peritoneum was re-approximated using 3-0 plain in a running fashion. The fascia was then re-approximated using 0 Vicryl in a running fashion. The subcutaneous tissue was inspected for hemostasis. Robert's fascia was then re-approximated using 2-0 plain in a running fashion. Good hemostasis was noted. The subcutaneous tissue was then re-approximated using a subcuticular stitch with 4-0 Vicryl. Steri-Strips were then placed to re-approximate the skin layer. The patient tolerated the procedure well and was recovered in stable condition. Estimated blood loss was 850 mL. Urine in the Mays catheter was clear.
[2019-04-24] VITALS (18 sets, daily range): BP systolic 94–128; BP diastolic 60–82; PULSE 90–116; RESP 16–20; TEMP 36.5–37.1; O2SAT 95–99
[2019-04-24] MEDS: clindamycin 900 MG/50 ML PREMIX 100 MG IV ×2 (01:04→10:25)
--- NOTE | 2019-04-24 01:31 | PC.NURSE ---
Epidulral Cath removed by anesthesia.
--- NOTE | 2019-04-24 03:11 | PC.NURSE ---
Pt. taken to OR Suite via bed
[2019-04-24] MEDS: ondansetron 2 mg/ML SDV 2 mL 4 MG IVP (04:51)
--- NOTE | 2019-04-24 06:06 | PC.NURSE ---
Pt. had vomited and medication was given
[2019-04-24] MEDS: ketorolac 30 mg/mL INJ IVP (06:16)
[2019-04-24] MEDS: dextrose 5%-lactated ringers 1,000 ML 125 ML IV (06:27)
[2019-04-24] MEDS: promethazine 25 mg/mL SDV 1 mL IM (07:10)
[2019-04-24] MEDS: lactated ringers 1,000 ML 999 ML IV (07:12)
[2019-04-24] MEDS: lanolin oint 7 gm 1 APPLIC TOPICAL (08:38)
[2019-04-24] MEDS: docusate sodium 100 mg Capsule PO ×2 (10:29→22:01)
[2019-04-24] MEDS: ferrous sulfate EC 325 mg Tablet PO ×2 (10:29→21:58)
[2019-04-24] MEDS: prenatal vitamin Capsule 1 CAP PO (10:29)
[2019-04-24 12:53] LABS: Hematocrit 32.9 % (37.0-47.0); Hemoglobin 10.5 g/dL (11.5-15.3); Mean Corpuscular HGB Conc 31.9 g/dL (30.0-36.0); Mean Platelet Volume 10.7 fL (7.4-10.4); Platelet Count 280 10^3/cmm (130-400); Red Cell Distribution Width 13.2 % (12.1-15.1); White Blood Count 20.7 10^3/uL (4.0-10.0)
--- NOTE | 2019-04-24 14:49 | ANE.PACU2 ---
 Inpatient post-anesthesia follow up: Airway intact: Yes Vital signs: Temperature 98.2 F Pulse Rate 116 Respiratory Rate 17 Blood Pressure 110/60 Pulse Oximetry 96 Oxygen Delivery Me thod Room Air Oxygen Flow Rate 10 Fraction of Inspir ed Oxygen Hydration adequate: Yes Nausea and vomiting: No Mental status: Baseline Additional Comments: Foely still in place, up and walking since epidural removed, no signs of infection at epidural site. No headaches
--- NOTE | 2019-04-24 19:03 | P.PN_ITS ---
Subjective Subjective: Interval history: Patient is doing well at this time. She is ambulating, voiding, and tolerating liquids by mouth. She has not had a bowel movement or pass gas yet. Her pain is starting to increase, however it is under good control currently. She has no concerns at this time. Vitals/I&O/Wt Last Vital Signs Temp 98.6 F 04/24/19 17:30 Pulse 103 H 04/24/19 17:30 Resp 17 04/24/19 17:30 BP 106/71 04/24/19 17:30 Pulse Ox 96 04/24/19 17:30 04/24/19 04/24/19 04/24/19 06:59 14:59 22:59 Intake Total 100 / 2125.650 1943.75 / 1943.75 Output Total 550 / 750 400 / 400 Balance -450 / 7813.436 9414.75 / 1543.75 Weight last 48 hrs Weight 274 lb Physical Exam Narrative: EXAM NARRATIVE: General: Alert and oriented x3 Eyes: Pupils equal round and reactive to light and accommodation Mouth: Mucous membranes moist, pharynx non-erythematous Cardiac: Regular rate and rhythm without murmurs Lungs: Clear to auscultation bilaterally without wheezes, crackles or rhonchi Abdomen: Soft, non-tender, fundus is firm and 1 cm below the umbilicus. Incision is clean and dry without signs of infection or dehiscence. Extremities: Trace edema in the bilateral lower extremities Urinary Catheter Management^: Mays: Cath Placed During This Visit: yes Reason for Continuing Indwelling Catheter: Other Urinary Catheter Date of Insertion: 04/23/19 Urinary Catheter Time of Insertion: 13:10 Data : 04/24/19 12:21 A&P Additional A&P Information The patient is currently doing well at this time. Her pain is well controlled. She is ambulating, voiding, and tolerating liquids by mouth. Will advance her diet once she is passing gas. I had a lengthy discussion with her regarding the potential risks and precautionary steps to take to decrease risk for complications with her section. All questions were answered. Continue with current plan of care. Attestations Medical Necessity Statement*: The patient continues need inpatient care for routine intrapartum and management of section. Coding Level of Care Code Acute Research Dietitian for Cameron Flores
--- NOTE | 2019-04-24 23:49 | PC.NURSE ---
Urinary catheter was removed prior to shift change. Pt. is void well and has no complaints of discomfort.
--- NOTE | 2019-04-25 00:45 | PC.NURSE ---
Pt. requested bottle of formula for baby. Pt. states that she just can't breast feed anymore. Pt. was reassured that it was ok and that the staff would support her decision.
--- NOTE | 2019-04-25 03:08 | PC.NURSE ---
Pt. was holding the baby and felt the urge to void. Pt. got up and before she could get to the bathroom, had an incontinent episode of her bladder.
[2019-04-25 05:20] VITALS: BP 120/80; PULSE 89; RESP 16; TEMP 36.7; O2SAT 97
[2019-04-25] MEDS: oxyCODONE-APAP 5-325 mg Tablet PO ×2 (05:20→11:32)
--- NOTE | 2019-04-25 09:34 | P.DS_ITS ---
Discharge Providers Date of Admission: 04/23/19 06:55 Date of Discharge: April 25, 2019 Attending Provider at Admission: Mary Allan MD Attending Provider at Discharge: Mary Allan MD Primary Care Provider: Mary Allan MD Diagnoses at Discharge Discharge Diagnosis (1) 39 weeks gestation of : Status: Acute (2) Encounter for induction of labor: Status: Acute (3) Gestational diabetes mellitus in , insulin controlled: Status: Acute (4) Anxiety with depression: Status: Acute (5) Rubella non-immune status, antepartum: Status: Acute (6) Hypothyroidism affecting in third trimester: Status: Acute (7) Obesity complicating in third trimester: Status: Acute (8) Nausea and vomiting of , antepartum: Status: Acute Other Information Additional DC diagnoses/information: 1. Intrauterine status post primary low transverse section at 39.1 weeks gestation 2. Gestational diabetes on insulin 3. Hypothyroidism 4. Arrest of descent with concern for cephalopelvic disproportion 5. Obesity 6. Delivery of healthy male weighing 7 pounds 9 ounces with Apgars of 8 and 10 7. OP positioning Reason for Visit Reason for Visit: Reason For Visit: Induction Hospital Course Hospital Course: The patient presented to labor and delivery for induction of labor secondary to gestational diabetes. The patient's intrapartum course was managed by Dr. Allan. Please see her notes for full details. The patient made it to complete dilation and pushed for 2 hours without significant descent. For this reason, there was concern that there could be a shoulder dystocia, versus cephalopelvic disproportion. The patient was taken for a primary low transverse section and the was found to be in the OP position. The patient had no complications after her section. She is ambulating, voiding, passing gas and tolerating food by mouth. Her bleeding is decreasing well. Her pain is well controlled. I discussed routine post care with her. All questions were answered. The patient has been doing very well and is in agreement with discharge home at this time. She is to follow-up with me next week in the clinic to watch for any signs of complications. Overall she is doing well and will be discharged home this afternoon as long as she tolerates lunch well. Physical Exam Urinary Catheter Management^: Mays: Cath Placed During This Visit: yes Reason for Continuing Indwelling Catheter: Other Urinary Catheter Date of Insertion: 04/23/19 Urinary Catheter Time of Insertion: 13:10 Discharge Data Data Completed and Pending: Labs from last 24 hours 04/24/19 12:21 WBC 20.7 H RBC 3.50 L Hgb 10.5 L Hct 32.9 L MCV 94.0 MCH 30.0 MCHC 31.9 RDW 13.2 Plt Count 280 MPV 10.7 H Vitals: Last Vital Signs Temp 98.1 F 04/25/19 05:20 Pulse 89 04/25/19 05:20 Resp 16 04/25/19 05:20 BP 120/80 04/25/19 05:20 Pulse Ox 97 04/25/19 05:20 Discharge Plan Discharge Patient Disposition: Home, Self-Care Condition: Stable Prescriptions: New oxycodone-acetaminophen 5-325 mg Tablet 1 tab PO Q6H PRN (Reason: Moderate To Severe Pain) Qty: 15 RF: 0 ferrous sulfate 325 mg (65 mg iron) Tablet,Delayed Release (Dr/Ec) 325 mg PO BIDWM Qty: 30 RF: 0 ibuprofen 800 mg Tablet 800 mg PO TID Qty: 60 RF: 0 Continued prenat.vits,ovidio,lhq-agtt-ncfft Tablet 1 tab PO ONCE RF: 0 Bonjesta 20-20 mg tablet,IR,delayed rel,biphasic 1 - 2 tab PO .HS RF: 0 levothyroxine 25 mcg capsule 25 mcg PO ONCE RF: 0 Discontinued Levemir U-100 Insulin 100 unit/mL Solution 10 unit SUBCUT BID RF: 0 Discharge Orders: Discharge Order (Routine); Ordered 04/25/19 Ordered By: Brian Melo Referrals: Brian Melo MD [Physician] - 04/29/19 Discharge Diet: Advance as tolerated Discharge Activity: Limit activity as instructed Patient Instructions: Section (DC), OB Discharge Report, OB Food/Drug Interaction Guide, OB Proud Parent Packet Activity Restrictions/Additional Instructions: Do not lift anything heavier than your infant in the car seat for the first 3 weeks, then gradually increase. No driving for 2 weeks. If you have any concerns for infection or complications with your incision site, please call [facility] right away for further treatment recommendations. Discharge Attestations Time Spent in Discharge Care*: greater than 30 min Status at Discharge: Cognitive status at discharge: cognitively intact , Behavioral status at discharge: cooperative , Quality Metrics Clinical Quality Measures During this hospital stay, did patient experience: None Coding Level of Care Code Acute Sales Effectiveness Manager for Chg Fwd Diagnoses 39 weeks gestation of Z3A.39 Encounter for induction of labor Z34.90 Gestational diabetes mellitus in , insulin controlled O24.414 Anxiety with depression F41.8 Rubella non-immune status, antepartum O99.89; Z28.3 Hypothyroidism affecting in third trimester O99.283; E03.9 Obesity complicating in third trimester O99.213 Nausea and vomiting of , antepartum O21.9
[2019-04-25] MEDS: prenatal vitamin Capsule 1 CAP PO (09:59)
[2019-04-25] MEDS: docusate sodium 100 mg Capsule PO (10:00)
[2019-04-25 10:14] VITALS: BP 94/65; PULSE 89; RESP 14; TEMP 36.7
[2019-04-25 11:32] VITALS: RESP 17
[2019-04-25] MEDS: measles,mumps,rubella pf Vial (w/diluent) 0.5 ML SUBCUT (13:45)
[2019-04-25 14:00] VITALS: BP 114/82; PULSE 101; RESP 17; TEMP 36.8
[2019-04-25 14:01] VITALS: BP 114/82; PULSE 101; RESP 17; TEMP 36.8
== END 2019-04-25 14:32 | disposition home or self-care (01) | DRG 788 ==
PROVIDERS: Family Medicine; Admitting Provider Family Medicine; Family Provider Family Medicine; PCP Family Medicine; Visit Provider Family Medicine
PROC: 10D00Z1 Extraction of Products of Conception, Low, Open Approach (ICD-10-PCS; CPT 59514; principal; 2019-04-23 21:40)
DX: O24.414 Gestational diabetes mellitus in pregnancy, insulin controlled (principal); Z37.0 Single live birth; Z3A.39 39 weeks gestation of pregnancy; O99.344 Other mental disorders complicating childbirth; F41.8 Other specified anxiety disorders; E66.9 Obesity, unspecified; O99.213 Obesity complicating pregnancy, third trimester; O99.283 Endocrine, nutritional and metabolic diseases complicating pregnancy, third trimester; O62.1 Secondary uterine inertia; E03.9 Hypothyroidism, unspecified; O99.62 Diseases of the digestive system complicating childbirth; O99.89 Other specified diseases and conditions complicating pregnancy, childbirth and the puerperium; Z28.3 Underimmunization status; Z79.1 Long term (current) use of non-steroidal anti-inflammatories (NSAID)
CPT/HCPCS: 12345; 36415; 36416; 51702; 59409; 82962; 85025; 85027; 90707; 96372; 96374; 96375; 98960; G0378; G0379; J0330; J1885; J2001; J2250; J2274; J2405; J2550; J2590; J2704; J2765; J2795; J3010; J3490; J7030

== ENCOUNTER → 2019-06-25 16:08 | Outpatient (BNVA) | payer OTHER, SELFPAY | PROVIDERS: Family Provider Family Medicine; PCP Family Medicine; Visit Provider Nurse Practitioner Women's Health | DX: Z30.9 Encounter for contraceptive management, unspecified (principal); Z30.430 Encounter for insertion of intrauterine contraceptive device | CPT/HCPCS: 81025 ==

== ENCOUNTER → 2019-10-07 14:46 | Outpatient (BNVA) | payer OTHER, SELFPAY | PROVIDERS: Family Provider Family Medicine; PCP Family Medicine; Visit Provider Psychiatry & Neurology Psychiatry | DX: F33.2 Major depressive disorder, recurrent severe without psychotic features (principal); F41.1 Generalized anxiety disorder; F43.10 Post-traumatic stress disorder, unspecified | CPT/HCPCS: 99204 ==

== ENCOUNTER → 2019-11-06 08:27 | Outpatient (BNVA) | payer OTHER, SELFPAY | PROVIDERS: Family Provider Family Medicine; PCP Family Medicine; Visit Provider Psychiatry & Neurology Psychiatry | DX: F43.10 Post-traumatic stress disorder, unspecified (principal); F41.1 Generalized anxiety disorder; F33.2 Major depressive disorder, recurrent severe without psychotic features | CPT/HCPCS: 99213 ==

== ENCOUNTER → 2020-01-21 08:10 | Outpatient (BNVA) | payer OTHER, SELFPAY | PROVIDERS: Family Provider Family Medicine; PCP Family Medicine; Visit Provider Counselor Mental Health | DX: F41.1 Generalized anxiety disorder (principal); F33.2 Major depressive disorder, recurrent severe without psychotic features | CPT/HCPCS: 90834 ==

== ENCOUNTER → 2020-01-28 09:01 | Outpatient (BNVA) | payer OTHER, SELFPAY | PROVIDERS: Family Provider Family Medicine; PCP Family Medicine; Visit Provider Counselor Mental Health | DX: F41.1 Generalized anxiety disorder (principal); F33.2 Major depressive disorder, recurrent severe without psychotic features | CPT/HCPCS: 90834 ==

== ENCOUNTER → 2020-05-06 11:14 | Outpatient (BNVA) | payer OTHER, SELFPAY | PROVIDERS: Family Provider Family Medicine; PCP Family Medicine; Visit Provider Psychiatry & Neurology Psychiatry | DX: F43.10 Post-traumatic stress disorder, unspecified (principal); F41.1 Generalized anxiety disorder; F33.2 Major depressive disorder, recurrent severe without psychotic features | CPT/HCPCS: 99214 ==

== ENCOUNTER → 2020-06-03 08:13 | Outpatient (BNVA) | payer OTHER, SELFPAY | PROVIDERS: Family Provider Family Medicine; PCP Family Medicine; Visit Provider Psychiatry & Neurology Psychiatry | DX: F43.10 Post-traumatic stress disorder, unspecified (principal); F41.1 Generalized anxiety disorder; F33.2 Major depressive disorder, recurrent severe without psychotic features | CPT/HCPCS: 99213 ==

== ENCOUNTER → 2020-10-22 08:53 | Outpatient (BNVA) | payer OTHER, SELFPAY | PROVIDERS: Family Provider Family Medicine; PCP Family Medicine; Visit Provider Nurse Practitioner Women's Health | DX: T83.9XXA Unspecified complication of genitourinary prosthetic device, implant and graft, initial encounter (principal); Z30.9 Encounter for contraceptive management, unspecified | CPT/HCPCS: 81025 ==

== ENCOUNTER → 2020-11-15 10:19 | Outpatient (BNVA) | payer OTHER, SELFPAY | PROVIDERS: Family Provider Family Medicine; PCP Family Medicine; Visit Provider Nurse Practitioner Women's Health | DX: Z30.9 Encounter for contraceptive management, unspecified (principal) | CPT/HCPCS: 76857; 81025 ==

== ENCOUNTER 2021-01-29 11:00 | Emergency (ER) | payer OTHER, SELFPAY ==
[2021-01-29 11:54] VITALS: BP 149/91; PULSE 83; RESP 16; TEMP 36.8; O2SAT 97
--- NOTE | 2021-01-29 12:30 | W.ED.HA ---
Documented by User: SLAVA Johnson 01/29/21 12:30 HPI - Headache General: Chief Complaint: Headache Stated Complaint: Migraine going on 4 days Time Seen by Provider: 01/29/21 12:30 Source: patient Mode of arrival: ambulatory Limitations: no limitations History of Present Illness: HPI Narrative: Patient is a 30-year-old female presents to ED today with complaint of migraine headache over the past 4 days. Patient states she has a history of migraine headaches and feels her headache today is identical to previous migraines. [facility] ED PFSH: Medical History Anxiety disorder Depression Hypothyroidism No pertinent past medical history neghx: htn,dm,dvt/pe PCP: none Obesity Psychiatric care Symptomatic cholelithiasis Surgical History H/O adenoidectomy History of oral surgery wisdom teeth Family History Grandfather Diabetes Paternal grandfather Stroke Paternal grandfather Hypertension Paternal Colon cancer Maternal grandfather Father Diabetes Heart disease Grandmother Diabetes Paternal grandfather Denies family history of Ovarian cancer Hyperlipidemia Breast cancer Anesthesia complication Family history of thyroid problem Bleeding disorder Uterine cancer Female Reproductive History: Date of last menstrual period: 07/23/18 Course Vital Signs: Vital signs: Vital Signs Temperature 98.3 F 01/29/21 11:54 Pulse Rate 85 01/29/21 20:11 Respiratory Rate 18 01/29/21 20:11 Blood Pressure 148/72 01/29/21 20:11 Pulse Oximetry 98 01/29/21 20:11 MDM - Headache MDM Narrative: Medical decision making narrative: Brief history and physical exam was performed as part of the triage process. Due to current ED wait time patient will be placed in waiting room until a room becomes available. Explained to patient he/she will be seen in order of severity. Patient is currently safe to wait in the waiting room until we can get them placed. Patient informed that if condition worsens at any time to please let the front desk host know. Lab Data: Labs: Lab Results 01/29/21 01/29/21 15:23 15:23 WBC 12.0 10^3/uL H 10 ^3/uL (4.0-10.0) RBC 4.73 10^6/uL 10^6 /uL (4.1-5.3) Hgb 13.5 g/dL g/dL (11.5-15.3) Hct 41.7 % % (37.0-47.0) MCV 88.2 fl fl (81-99) MCH 28.5 pg pg (28.0-34.0) MCHC 32.4 g/dL g/dL (30.0-36.0) RDW 12.6 % % (12.1-15.1) Plt Count 427 10^3/cmm H 10 ^3/cmm (130-400) MPV 9.0 fL fL (7.4-10.4) Neut % (Auto) 76.7 % % Lymph % (Auto) 17.3 % % Buchanan % (Auto) 4.3 % % Eos % (Auto) 0.8 % % Baso % (Auto) 0.3 % % Neut # (Auto) 9.20 10^3/uL H 10 ^3/uL (1.8-7.7) Lymph # (Auto) 2.1 10^3/uL 10^3/ uL (0.8-4.8) Buchanan # (Auto) 0.5 10^3/uL 10^3/ uL (0.2-0.9) Eos # (Auto) 0.1 10^3/uL 10^3/ uL (0.0-0.8) Baso # (Auto) 0.0 10^3/uL 10^3/ uL (0.0-0.1) Nucleated RBC % (a uto) 0 % % Nucleated RBCs # 0.0 /100WBC /100W BC Sodium 137 mmol/L mmol/L (136-145) Potassium 4.1 mmol/L mmol/L (3.5-5.1) Chloride 101 mmol/L mmol/L (98-107) Carbon Dioxide 21 mmol/L L mmol/ L (22-29) Anion Gap 19.1 H (5-19) BUN 9 mg/dL mg/dL (6-20) Creatinine 0.6 mg/dL mg/dL (0.5-0.9) GFR Calculation 119.0 mL/min mL/m in (90-130) Glucose 95 mg/dL mg/dL (65-115) Calculated Osmolal ity 282 mOsm/kg L mOs m/kg (285-295) Calcium 8.9 mg/dL mg/dL (8.5-10.5) Discharge Plan Discharge Patient Disposition: Home Clinical Impression: Headache Condition: Stable Prescriptions: New acetaminophen 500 mg tablet 500 mg PO Q6H PRN (Reason: pain) 5 Days Qty: 20 RF: 0 magnesium oxide 420 mg tablet 420 mg PO DAILY 10 Days Qty: 10 RF: 0 No Action povidone-iodine [Betadine Swabsticks] 10 % swab 1 applic topical ONCE Qty: 1 RF: 0 ParaGard T 380A 380 square mm intrauterine device 1 device INTRAUTERI ONCE Qty: 1 RF: 0 ParaGard T 380A 380 square mm intrauterine device intrauterine RF: 0 aripiprazole [Abilify] 2 mg tablet 2 mg PO DAILY Qty: 30 RF: 2 bupropion HCl [Wellbutrin XL] 300 mg tablet extended release 24 hr 300 mg PO QAM Qty: 30 RF: 2 fluoxetine 40 mg capsule 40 mg PO QAM Qty: 30 RF: 2 trazodone 50 mg tablet 100 mg PO .HS PRN (Reason: insomnia) Qty: 60 RF: 2 Discharge Orders: Discharge ED (Routine); Ordered 01/29/21 Ordered By: Leighton Mullins Referrals: Mary Allan MD [Primary Care Provider] - Discharge Diet: Advance as tolerated Discharge Activity: Resume usual activity Patient Instructions: Acute Headache (ED) Activity Restrictions/Additional Instructions: Please come back to the emergency patient your headache worsens, if you have any focal weakness in your arms or legs, double vision, slurring of speech, fever/chill nausea/vomiting, or any new extreme complaints Coding Level of Care Code ED Food Production Machine Operator for Chg Fwd Documented by User: Leighton Mullins MD 01/30/21 11:20 HPI - Headache General: Chief Complaint: Headache Stated Complaint: Migraine going on 4 days Time Seen by Provider: 01/29/21 12:30 History of Present Illness: HPI Narrative: Patient is a 42-year-old female with history of migraine presents emergency room with 4 days of headache. Patient first described a headache when she was asleep and woke her up. Patient's described a sudden onset sharp headache that gradually improved but now got worse. Patient describes that it is pulsatile in nature has over the last few days. Patient is, patient has right-sided neck pain with radiation of the headache to the neck. Patient has no focal neurological complaints. Reported multiple episodes of vomiting throughout the night. Patient has had a headache that is worse at night for the last 2 days both of which woke her up in her sleep. Patient has no fever no chills, no chest pain, shortness breath, palpitation, lightheadedness. Patient describes her headache is different from her prior headache. Review of Systems Narrative: Constitutional: No fever, no chills. HEENT: No vision changes CV: No chest pain, no palpitations PULM: no cough, no dyspnea. GI: No abdominal pain, no N/V/D. : No dysuria MSKEL: No muscle pain SKIN: No new rashes, no lesions. NEURO:+headache, no focal weakness. HEME: No visible bruises PSYCH: Normal mood PFSH ED PFSH: Medical History Anxiety disorder Depression Hypothyroidism No pertinent past medical history neghx: htn,dm,dvt/pe PCP: none Obesity Psychiatric care Symptomatic cholelithiasis Surgical History H/O adenoidectomy History of oral surgery wisdom teeth Family History Grandfather Diabetes Paternal grandfather Stroke Paternal grandfather Hypertension Paternal Colon cancer Maternal grandfather Father Diabetes Heart disease Grandmother Diabetes Paternal grandfather Denies family history of Ovarian cancer Hyperlipidemia Breast cancer Anesthesia complication Family history of thyroid problem Bleeding disorder Uterine cancer Physical Exam Narrative: EXAM NARRATIVE: Head: Atraumatic Eyes: PERRL, conjunctiva without injection ENT: Mucous membrane moist NECK: Supple, ROM intact LUNGS: LCTAB, no crackles/rhonchi CV: RRR ABDOMEN: Soft, nontender in all quadrants EXTREMITY: Normal ROM SKIN: No rash or erythema NEURO: Mental status? Awake, alert, and oriented to self, year, month, location, and situation.? Following simple axial and appendicular commands.? Has appropriate fund of knowledge, comprehension, and insight.? Able to recall and understands pertinent aspects of medical history and current treatment status.? ? Language? Speech is fluent without word-finding difficulties.? Intact naming, expression, reception clerk, and repetition.? ? Cranial nerves? 2,3,4,6: PERRL, EOMI with no nystagmus. 5: Intact sensation to light touch, symmetric? 7: Smile symmetrical, no facial droop.? 8: Hearing grossly intact.? 9,10: Normal palate movement.? 11: Normal strength in trapezius bilaterally 12: Tongue protrudes midline.? ? Motor examination? Normal bulk & tone. Strength as follows (R/L): Delts (5/5), Biceps (5/5), Triceps (5/5), Wrist ext (5/5), hip flexors (5/5), plantarflexors (5/5), dorsiflexors (5/5). ? Sensation? Light Touch: Grossly intact and equal in upper and lower extremities bilaterally? Romberg: Negative.? Distal joint position sense intact ? Coordination? Uxbbff-my-fehz-finger movements intact without dysmetria or past-pointing.? Rapid fingertaps: preserved amplitude without decriment.? No tremor, myoclonus or truncal ataxia.? ? Gait/stance? Steady, normal narrow base gait with appropriate arm swing and turning.? Tandem gait without hesitation or loss of balance. PSYCH: Normal mood and affect Course Vital Signs: Vital signs: Vital Signs Temperature 98.3 F 01/29/21 11:54 Pulse Rate 85 01/29/21 20:11 Respiratory Rate 18 01/29/21 20:11 Blood Pressure 148/72 01/29/21 20:11 Pulse Oximetry 98 01/29/21 20:11 MDM - Headache MDM Narrative: Medical decision making narrative: 30-year-old female with a history migraine presents the emergency new onset headache x4 days different from prior headache. On exam, patient neurologically intact. Afebrile. White count 12.0. Patient has family history of aneurysm. CT brain as well as CTA head and neck did not show any signs of focal finding. No signs of aneurysm on CTA neck. Have performed shared decision making on explained to patient that there is <1% chance the patient still has could have subarachnoid bleed however, given the extremely low risk, a shared decision was made to not perform lumbar puncture. Have discussed case with Dr. Corrales who agrees with plan. Patient's headache improved with Toradol, Reglan, IVF, magnesium, and tylenol. I have given patient follow up with our field nurse case manager to be seen by Dr. Corrales for management of headache. Patient aware of a call from our field nurse case manager to schedule for appointment(s) and verbalizes understanding of the importance of following up. Rx: tylenol and magnesium PRN headache Disposition: Discharge. Patient counseled regarding diagnostic impression, treatment plan. Patient given ED strict return precautions to return for continuation, worsening, or development of new symptoms. Instructed to f/u w/ PCP regarding symptoms today. Patient verbalized understanding. Beaded morphology of proximal anterior and MCA discussed with patient with close follow up with Dr. Corrales. Lab Data: Labs: Lab Results 01/29/21 01/29/21 15:23 15:23 WBC 12.0 10^3/uL H 10 ^3/uL (4.0-10.0) RBC 4.73 10^6/uL 10^6 /uL (4.1-5.3) Hgb 13.5 g/dL g/dL (11.5-15.3) Hct 41.7 % % (37.0-47.0) MCV 88.2 fl fl (81-99) MCH 28.5 pg pg (28.0-34.0) MCHC 32.4 g/dL g/dL (30.0-36.0) RDW 12.6 % % (12.1-15.1) Plt Count 427 10^3/cmm H 10 ^3/cmm (130-400) MPV 9.0 fL fL (7.4-10.4) Neut % (Auto) 76.7 % % Lymph % (Auto) 17.3 % % Buchanan % (Auto) 4.3 % % Eos % (Auto) 0.8 % % Baso % (Auto) 0.3 % % Neut # (Auto) 9.20 10^3/uL H 10 ^3/uL (1.8-7.7) Lymph # (Auto) 2.1 10^3/uL 10^3/ uL (0.8-4.8) Buchanan # (Auto) 0.5 10^3/uL 10^3/ uL (0.2-0.9) Eos # (Auto) 0.1 10^3/uL 10^3/ uL (0.0-0.8) Baso # (Auto) 0.0 10^3/uL 10^3/ uL (0.0-0.1) Nucleated RBC % (a uto) 0 % % Nucleated RBCs # 0.0 /100WBC /100W BC Sodium 137 mmol/L mmol/L (136-145) Potassium 4.1 mmol/L mmol/L (3.5-5.1) Chloride 101 mmol/L mmol/L (98-107) Carbon Dioxide 21 mmol/L L mmol/ L (22-29) Anion Gap 19.1 H (5-19) BUN 9 mg/dL mg/dL (6-20) Creatinine 0.6 mg/dL mg/dL (0.5-0.9) GFR Calculation 119.0 mL/min mL/m in (90-130) Glucose 95 mg/dL mg/dL (65-115) Calculated Osmolal ity 282 mOsm/kg L mOs m/kg (285-295) Calcium 8.9 mg/dL mg/dL (8.5-10.5) Imaging Data^: Other Imaging: Radiologist's impression: [address] [id number] Scan ReportSigned Patient: Analisa Cook #: [id number]: 1990Acct#:[id number]/Sex: 30 / FADM Date: 01/29/21Loc: ERRoom/Bed:Attending Dr: Ordering Provider/Ordering MD: Leighton Mullins MD Date of Service: 01/29/21 Procedure(s): CT angio head [id number] Accession Number(s): [id number] Report Number: [id number] PROCEDURE INFORMATION: Exam: CT Angiography Head With Contrast, Arteriography Exam date and time: 01/29/2021 4:38 PM Age: 30 years old Clinical indication: Pain; Patient HX: Headache on top of head x4 days; Additional info: Eval for aneurysms TECHNIQUE: Imaging protocol: Computed tomography angiography of the head with contrast. Exam focused on the arteries. 3D rendering (Not supervised by radiologist): MIP and/or 3D reconstructed images were created by the technologist. Radiation optimization: All CT scans at this facility use at least one of these dose optimization techniques: automated exposure control; mA and/or kV adjustment per patient size (includes targeted exams where dose is matched to clinical indication); or iterative reconstruction. Contrast material: OMNI 350; Contrast volume: 95 ml; Contrast route: INTRAVENOUS (IV); COMPARISON: CT head wo con* [id number] 01/29/2021 5:09 PM RADIATION DOSE METRICS: Total DLP (mGy-cm): 534.27 FINDINGS: ANTERIOR CIRCULATION: Right internal carotid artery: Unremarkable. Intracranial segment is patent with no significant stenosis. No aneurysm. Right middle cerebral artery: Beaded morphology of the M1 and proximal M2 branches. No occlusion or significant stenosis. No aneurysm. Right anterior cerebral artery: Beaded morphology of the A1 segment. No occlusion or significant stenosis. No aneurysm. Left internal carotid artery: Unremarkable. Intracranial segment is patent with no significant stenosis. No aneurysm. Left middle cerebral artery: Beaded morphology of the M1 and proximal M2 branches. No occlusion or significant stenosis. No aneurysm. Left anterior cerebral artery: Beaded morphology of the A1 segment. No occlusion or significant stenosis. No aneurysm. POSTERIOR CIRCULATION: Right vertebral artery: Unremarkable. No occlusion or significant stenosis. No aneurysm. Left vertebral artery: Unremarkable. No occlusion or significant stenosis. No aneurysm. Basilar artery: Unremarkable. No occlusion or significant stenosis. No aneurysm. Right posterior cerebral artery: origin of the right posterior cerebral artery. No occlusion or aneurysm. Left posterior cerebral artery: Unremarkable. No occlusion or significant stenosis. No aneurysm. Veins: Dural venous sinuses are patent. Brain: No definite mass, mass effect, or midline shift. Cerebral ventricles: No ventriculomegaly. Bones/joints: Unremarkable. No acute fracture. Soft tissues: Unremarkable. CT/CT angio head [id number] IMPRESSION: 1. No arterial stenosis, occlusion or aneurysm. 2. Beaded morphology of the proximal anterior and middle cerebral arteries without visible stenosis or occlusion. Findings suggest fibromuscular dysplasia. Dictated By:Donald Nunez MDSigned By:Donald Nunez MDSigned Date/Time:01/29/21 1757DD/ [address] [id number] Scan ReportSigned Patient: Analisa Cook #: [id number]: 1990Acct#:[id number]/Sex: 30 / FADM Date: 01/29/21Loc: ERRoom/Bed:Attending Dr: Ordering Provider/Ordering MD: Leighton Mullins MD Date of Service: 01/29/21 Procedure(s): CT head wo con* [id number] Accession Number(s): [id number] Report Number: [id number] PROCEDURE INFORMATION: Exam: CT Head Without Contrast Exam date and time: 01/29/2021 4:38 PM Age: 30 years old Clinical indication: Pain; Migraine; Aura effect not specified; Patient HX: Headache on top of head x4 days; Additional info: Eval for mass/lession TECHNIQUE: Imaging protocol: Computed tomography of the head without contrast. Radiation optimization: All CT scans at this facility use at least one of these dose optimization techniques: automated exposure control; mA and/or kV adjustment per patient size (includes targeted exams where dose is matched to clinical indication); or iterative reconstruction. COMPARISON: No relevant prior studies available. RADIATION DOSE METRICS: Total DLP (mGy-cm): 923.08 FINDINGS: Brain: Minimal bilateral basal ganglia punctate microcalcifications appear benign Cerebral ventricles: No ventriculomegaly. Paranasal sinuses: Visualized sinuses are unremarkable. No fluid levels. Mastoid air cells: Visualized mastoid air cells are well aerated. Bones/joints: Unremarkable. No acute fracture. Soft tissues: Unremarkable. CT/CT head wo con* [id number] IMPRESSION: No acute intracranial abnormality. Dictated By:Jose Antonio Silva MDSigned By:Jose Antonio Silva MDSigned Date/Time:01/29/21 1734DD/ 1638 Discharge Plan Discharge Patient Disposition: Home Clinical Impression: Headache Condition: Stable Prescriptions: New acetaminophen 500 mg tablet 500 mg PO Q6H PRN (Reason: pain) 5 Days Qty: 20 RF: 0 magnesium oxide 420 mg tablet 420 mg PO DAILY 10 Days Qty: 10 RF: 0 No Action povidone-iodine [Betadine Swabsticks] 10 % swab 1 applic topical ONCE Qty: 1 RF: 0 ParaGard T 380A 380 square mm intrauterine device 1 device INTRAUTERI ONCE Qty: 1 RF: 0 ParaGard T 380A 380 square mm intrauterine device intrauterine RF: 0 aripiprazole [Abilify] 2 mg tablet 2 mg PO DAILY Qty: 30 RF: 2 bupropion HCl [Wellbutrin XL] 300 mg tablet extended release 24 hr 300 mg PO QAM Qty: 30 RF: 2 fluoxetine 40 mg capsule 40 mg PO QAM Qty: 30 RF: 2 trazodone 50 mg tablet 100 mg PO .HS PRN (Reason: insomnia) Qty: 60 RF: 2 Discharge Orders: Discharge ED (Routine); Ordered 01/29/21 Ordered By: Leighton Mullins Referrals: Mary Allan MD [Primary Care Provider] - Discharge Diet: Advance as tolerated Discharge Activity: Resume usual activity Patient Instructions: Acute Headache (ED) Activity Restrictions/Additional Instructions: Please come back to the emergency patient your headache worsens, if you have any focal weakness in your arms or legs, double vision, slurring of speech, fever/chill nausea/vomiting, or any new extreme complaints Coding Level of Care Code ED Food Production Machine Operator for Cameron Flores
[2021-01-29 15:02] VITALS: BP 132/83; PULSE 88; RESP 16; O2SAT 99
[2021-01-29] MEDS: metoclopramide 5 mg/mL SDV 2 mL 10 MG IVP (15:26)
[2021-01-29] MEDS: diphenhydrAMINE 50 mg/mL SDV 1mL IVP (15:27)
[2021-01-29 15:28] LABS: Basophils % 0.3 %; Eosinophils # 0.1 10^3/uL (0.0-0.8); Eosinophils % 0.8 %; Hematocrit 41.7 % (37.0-47.0); Hemoglobin 13.5 g/dL (11.5-15.3); Lymphocytes # 2.1 10^3/uL (0.8-4.8); Lymphocytes % 17.3 %; Mean Corpuscular HGB Conc 32.4 g/dL (30.0-36.0); Mean Corpuscular Hemoglobin 28.5 pg (28.0-34.0); Mean Corpuscular Volume 88.2 fl (81-99); Monocytes # 0.5 10^3/uL (0.2-0.9); Monocytes % 4.3 %; Neutrophils % 76.7 %; Nucleated Red Blood Cells % 0 %; Platelet Count 427 10^3/cmm (130-400); Red Blood Count 4.73 10^6/uL (4.1-5.3); Red Cell Distribution Width 12.6 % (12.1-15.1)
[2021-01-29] MEDS: acetaminophen 500 mg Tablet 1000 MG PO (15:28)
[2021-01-29] MEDS: sodium chloride 0.9% 1,000 ML 999 ML IV (15:29)
[2021-01-29 15:44] LABS: Anion Gap 19.1 (5-19); Blood Urea Nitrogen 9 mg/dL (6-20); Calcium 8.9 mg/dL (8.5-10.5); Carbon Dioxide 21 mmol/L (22-29); Chloride 101 mmol/L (98-107); Glucose 95 mg/dL (65-115); Osmolality Calculated 282 mOsm/kg (285-295); Potassium 4.1 mmol/L (3.5-5.1); Sodium 137 mmol/L (136-145)
--- NOTE | 2021-01-29 16:38 | CTR_ITS ---
PROCEDURE INFORMATION: Exam: CT Angiography Head With Contrast, Arteriography Exam date and time: 01/29/2021 4:38 PM Age: 30 years old Clinical indication: Pain; Patient HX: Headache on top of head x4 days; Additional info: Eval for aneurysms TECHNIQUE: Imaging protocol: Computed tomography angiography of the head with contrast. Exam focused on the arteries. 3D rendering (Not supervised by radiologist): MIP and/or 3D reconstructed images were created by the technologist. Radiation optimization: All CT scans at this facility use at least one of these dose optimization techniques: automated exposure control; mA and/or kV adjustment per patient size (includes targeted exams where dose is matched to clinical indication); or iterative reconstruction. Contrast material: OMNI 350; Contrast volume: 95 ml; Contrast route: INTRAVENOUS (IV); COMPARISON: CT head wo con* [id number] 01/29/2021 5:09 PM RADIATION DOSE METRICS: Total DLP (mGy-cm): 534.27 FINDINGS: ANTERIOR CIRCULATION: Right internal carotid artery: Unremarkable. Intracranial segment is patent with no significant stenosis. No aneurysm. Right middle cerebral artery: Beaded morphology of the M1 and proximal M2 branches. No occlusion or significant stenosis. No aneurysm. Right anterior cerebral artery: Beaded morphology of the A1 segment. No occlusion or significant stenosis. No aneurysm. Left internal carotid artery: Unremarkable. Intracranial segment is patent with no significant stenosis. No aneurysm. Left middle cerebral artery: Beaded morphology of the M1 and proximal M2 branches. No occlusion or significant stenosis. No aneurysm. Left anterior cerebral artery: Beaded morphology of the A1 segment. No occlusion or significant stenosis. No aneurysm. POSTERIOR CIRCULATION: Right vertebral artery: Unremarkable. No occlusion or significant stenosis. No aneurysm. Left vertebral artery: Unremarkable. No occlusion or significant stenosis. No aneurysm. Basilar artery: Unremarkable. No occlusion or significant stenosis. No aneurysm. Right posterior cerebral artery: origin of the right posterior cerebral artery. No occlusion or aneurysm. Left posterior cerebral artery: Unremarkable. No occlusion or significant stenosis. No aneurysm. Veins: Dural venous sinuses are patent. Brain: No definite mass, mass effect, or midline shift. Cerebral ventricles: No ventriculomegaly. Bones/joints: Unremarkable. No acute fracture. Soft tissues: Unremarkable. CT/CT angio head [id number] IMPRESSION: 1. No arterial stenosis, occlusion or aneurysm. 2. Beaded morphology of the proximal anterior and middle cerebral arteries without visible stenosis or occlusion. Findings suggest fibromuscular dysplasia.
--- NOTE | 2021-01-29 16:38 | CTR_ITS ---
PROCEDURE INFORMATION: Exam: CT Head Without Contrast Exam date and time: 01/29/2021 4:38 PM Age: 30 years old Clinical indication: Pain; Migraine; Aura effect not specified; Patient HX: Headache on top of head x4 days; Additional info: Eval for mass/lession TECHNIQUE: Imaging protocol: Computed tomography of the head without contrast. Radiation optimization: All CT scans at this facility use at least one of these dose optimization techniques: automated exposure control; mA and/or kV adjustment per patient size (includes targeted exams where dose is matched to clinical indication); or iterative reconstruction. COMPARISON: No relevant prior studies available. RADIATION DOSE METRICS: Total DLP (mGy-cm): 923.08 FINDINGS: Brain: Minimal bilateral basal ganglia punctate microcalcifications appear benign Cerebral ventricles: No ventriculomegaly. Paranasal sinuses: Visualized sinuses are unremarkable. No fluid levels. Mastoid air cells: Visualized mastoid air cells are well aerated. Bones/joints: Unremarkable. No acute fracture. Soft tissues: Unremarkable. CT/CT head wo con* [id number] IMPRESSION: No acute intracranial abnormality.
[2021-01-29 16:50] VITALS: BP 165/80
[2021-01-29] MEDS: iohexol 350 mg/mL 100 mL Btl IV (17:14)
[2021-01-29] MEDS: predniSONE 20 mg Tablet 60 MG PO (18:52)
[2021-01-29] MEDS: ketorolac 30 mg/mL INJ IVP (18:52)
[2021-01-29] MEDS: magnesium sulfate premix 2 GM/50 ML PIGGYBACK IV (18:55)
[2021-01-29 20:11] VITALS: BP 148/72; PULSE 85; RESP 18; O2SAT 98
== END 2021-01-29 20:13 | disposition home or self-care (01) ==
PROVIDERS: Emergency Provider Emergency Medicine; PCP Family Medicine
DX: R51.9 Headache, unspecified (principal)
CPT/HCPCS: 70450; 70496; 80048; 85025; 96365; 96375; 99284; J1200; J1885; J2765; J3475; J7030; J7512; Q9967

== ENCOUNTER 2021-11-16 01:06 | Observation (INO) | payer OTHER, SELFPAY ==
[2021-11-16] VITALS (47 sets, daily range): BP systolic 95–167; BP diastolic 67–102; PULSE 64–112; RESP 13–22; TEMP 36.4–37.3; O2SAT 63–100; BMI 37.5
--- NOTE | 2021-11-16 01:13 | CTR_ITS ---
PROCEDURE INFORMATION: Exam: CT Abdomen And Pelvis Without Contrast Exam date and time: 11/16/2021 1:25 AM Age: 31 years old Clinical indication: Abdominal pain; Localized; Right lower quadrant (rlq); Prior surgery; Surgery type: Iud; Patient HX: Rlq pain with nausea. ; Additional info: Rlq abd pain TECHNIQUE: Imaging protocol: Computed tomography of the abdomen and pelvis without contrast. Radiation optimization: All CT scans at this facility use at least one of these dose optimization techniques: automated exposure control; mA and/or kV adjustment per patient size (includes targeted exams where dose is matched to clinical indication); or iterative reconstruction. COMPARISON: No relevant prior studies available. RADIATION DOSE METRICS: Total DLP (mGy-cm): 1301.23 FINDINGS: Lungs: The lung bases are clear. Liver: Unremarkable. Gallbladder and bile ducts: No definite gallbladder abnormality by CT. No biliary tree dilation. Pancreas: Unremarkable. Spleen: Unremarkable. Adrenal glands: Unremarkable. Kidneys and ureters: No hydronephrosis of either kidney. No visible renal or ureteral calculus. No perinephric fluid. Stomach and bowel: No significant bowel distention. There are no CT findings to suggest diverticulitis. Appendix: There are findings compatible with acute appendicitis. The appendix is dilated up to 8-9 mm in diameter. There are mild periappendiceal inflammatory changes. No obvious abscess or extraluminal gas. Intraperitoneal space: No free intraperitoneal air, or ascites. Vasculature: No evidence for abdominal aortic aneurysm. Lymph nodes: There are several borderline/mildly prominent right lower quadrant mesenteric lymph nodes. Urinary bladder: The urinary bladder is almost empty, limiting evaluation. Reproductive: An IUD is present within the uterus. 55 x 46 x 47 mm right ovarian cyst. This is larger than expected for a physiologic cyst, although that is still possible in this relatively young age group. Other etiologies are not excluded, including ovarian neoplasm. Appropriate gynecological workup/follow-up recommended. Ultrasound could further evaluate these ovarian findings if felt clinically indicated, and could also be used for appropriate follow-up, to insure against a persistent or enlarging lesion/neoplasm. No cul-de-sac fluid. Bones/joints: No significant acute finding. Soft tissues: No significant acute finding. CT/CT abdomen pelvis wo con [id number] IMPRESSION: 1. Findings compatible with acute appendicitis, see above details. 2. 55 x 46 x 47 mm right ovarian cyst, see above discussion. 3. No free air or bowel distention. 4. Other findings discussed above.
--- NOTE | 2021-11-16 01:15 | W.ED.ABDPA2 ---
HPI - Abdominal Pain General: Chief Complaint: Abdominal Pain Stated Complaint: ABD Pain Time Seen by Provider: 11/16/21 01:08 Source: patient Mode of arrival: ambulatory Limitations: no limitations History of Present Illness: 31-year-old female states that 5:55 PM today she started having a sharp sudden right lower quadrant pain. She states that pain is continued throughout the day is currently an 8 out of 10 she had some nausea denies any vomiting. Associated Symptoms: Denies chills, dysuria and fever(s) Related Data: Date of Last Menstrual Period: 11/16/21 Review of Systems Const: Denies: fever(s), chills, body aches or change in appetite Eyes: Denies: blurry vision or eye discomfort ENMT: Denies: throat pain or dental pain Card: Denies: chest pain Resp: Denies: dyspnea GI: Reports: abdominal pain : Denies: dysuria Musc: Denies: neck pain or back pain Skin/Breast: Denies: rash Neuro: Denies: headache(s) Psych: Denies: depression Benigno/Lymph: Denies: easy bruising All/Imm: Denies: urticaria PFSH ED PFSH: Medical History Acute pharyngitis Allergic rhinitis due to allergen Anxiety disorder Depression Hypothyroidism No pertinent past medical history neghx: htn,dm,dvt/pe PCP: none Obesity Psychiatric care Symptomatic cholelithiasis Surgical History H/O adenoidectomy History of oral surgery wisdom teeth Family History Grandfather Diabetes Paternal grandfather Stroke Paternal grandfather Hypertension Paternal Colon cancer Maternal grandfather Father Diabetes Heart disease Grandmother Diabetes Paternal grandfather Denies family history of Ovarian cancer Hyperlipidemia Breast cancer Anesthesia complication Family history of thyroid problem Bleeding disorder Uterine cancer Social History Smoking and tobacco status: never smoked Female Reproductive History: Date of last menstrual period: 11/16/21 Physical Exam Const: COMMON NORMALS: no acute distress, patient oriented x3 and healthy appearing HENMT: COMMON NORMALS: normocephalic and atraumatic HEAD & SCALP: normocephalic and atraumatic Eye: COMMON NORMALS: Equal, round and reactive pupils present and EOMs intact bilaterally PUPIL: Yes Equal, round and reactive pupils present Neck/C-Spine: COMMON NORMALS: full ROM and supple Chest: COMMONS NORMALS: normal inspection of the chest and normal palpation of entire chest wall Resp: COMMON NORMALS: normal respiratory effort, No retractions, No use of accessory muscles and clear to auscultation bilaterally AUSCULTATION: clear to auscultation bilaterally Cardio: COMMON NORMALS: regular rate, regular rhythm and No murmurs present (Cardio) RATE: regular rate RHYTHM: regular rhythm GI: COMMON NORMALS: Normal to inspection, nondistended, normoactive bowel sounds present, Soft to palpation and no masses PALPATION: Yes Soft to palpation and Yes Tenderness to palpation present (GI) Details: RLQ Extremity: COMMON NORMALS: normal to inspection and full ROM Neuro: COMMON NORMALS: patient oriented x3, moves all extremities and no focal motor deficits Psych: COMMON NORMALS: mental status grossly normal, Normal thought process present and cooperative THOUGHT PROCESS: Normal thought process present Skin: COMMON NORMALS: no rashes or lesions noted and no wounds GENERAL SKIN EXAM: no rashes or lesions noted Course Vital Signs: Vital signs: Vital Signs Temperature 97.5 F L 11/16/21 01:09 Pulse Rate 109 H 11/16/21 01:09 Respiratory Rate 19 H 11/16/21 01:09 Blood Pressure 144/89 11/16/21 01:09 Pulse Oximetry 96 11/16/21 01:09 Oxygen Delivery Me thod 11/16/21 01:09 MDM - Abdominal Pain Medical Decision Making Patient presents here with appendicitis did speak to surgeon Dr. Smith will admit at this time patient given IV antibiotics. Lab Data : 11/16/21 01:20 11/16/21 01:20 Labs/Radiology: Radiology Impressions Abdomen/Pelvis CT 11/16/21 01:13 IMPRESSION: 1. Findings compatible with acute appendicitis, see above details. 2. 55 x 46 x 47 mm right ovarian cyst, see above discussion. 3. No free air or bowel distention. 4. Other findings discussed above. ADDENDUM: 11/16/21 [id number] This report contains findings that may be critical to patient care. I discussed the critical exam findings by phone with Dr. GONZALES at 1:58 AM CDT, 11/16/2021. The findings were acknowledged and understood. Laboratory Results WBC 16.1 10^3/uL (4.0-10.0) H 11/16/21 01:20 RBC 4.79 10^6/uL (4.1-5.3) 11/16/21 01:20 Hgb 13.5 g/dL (11.5-15.3) 11/16/21 01:20 Hct 42.1 % (37.0-47.0) 11/16/21 01:20 MCV 87.9 fl (81-99) 11/16/21 01:20 MCH 28.2 pg (28.0-34.0) 11/16/21 01:20 MCHC 32.1 g/dL (30.0-36.0) 11/16/21 01:20 RDW 13.2 % (12.1-15.1) 11/16/21 01:20 Plt Count 373 10^3/cmm (130-400) 11/16/21 01:20 MPV 9.2 fL (7.4-10.4) 11/16/21 01:20 Neut % (Auto) 79.8 % 11/16/21 01:20 Lymph % (Auto) 13.1 % 11/16/21 01:20 [place] % (Auto) 4.6 % 11/16/21 01:20 Eos % (Auto) 1.7 % 11/16/21 01:20 Baso % (Auto) 0.3 % 11/16/21 01:20 Neut # (Auto) 12.85 10^3/uL (1.8-7.7) H 11/16/21 01:20 Lymph # (Auto) 2.1 10^3/uL (0.8-4.8) 11/16/21 01:20 [place] # (Auto) 0.7 10^3/uL (0.2-0.9) 11/16/21 01:20 Eos # (Auto) 0.3 10^3/uL (0.0-0.8) 11/16/21 01:20 Baso # (Auto) 0.1 10^3/uL (0.0-0.1) 11/16/21 01:20 Nucleated RBC % (auto) 0 % 11/16/21 01:20 Nucleated RBCs # 0.0 /100WBC 11/16/21 01:20 Sodium 137 mmol/L (136-145) 11/16/21 01:20 Potassium 4.3 mmol/L (3.5-5.1) 11/16/21 01:20 Chloride 101 mmol/L (98-107) 11/16/21 01:20 Carbon Dioxide 23 mmol/L (22-29) 11/16/21 01:20 Anion Gap 17.3 (5-19) 11/16/21 01:20 BUN 11 mg/dL (6-20) 11/16/21 01:20 Creatinine 0.7 mg/dL (0.5-0.9) 11/16/21 01:20 GFR Calculation 98.9 mL/min (90-130) 11/16/21 01:20 Calculated Osmolality 285 mOsm/kg (285-295) 11/16/21 01:20 Calcium 9.3 mg/dL (8.5-10.5) 11/16/21 01:20 Total Bilirubin 0.4 mg/dL (0.15-1.2) 11/16/21 01:20 AST 15 U/L (0-32) 11/16/21 01:20 ALT 26 U/L (0-33) 11/16/21 01:20 Alkaline Phosphatase 84 U/L (35-105) 11/16/21 01:20 Total Protein 6.8 g/dL (6.6-8.7) 11/16/21 01:20 Albumin 4.3 g/dL (3.5-5.2) 11/16/21 01:20 Globulin 2.5 g/dL (1.3-4.6) 11/16/21 01:20 Lipase 20 U/L (13-60) 11/16/21 01:20 HCG, Qual Negative (Negative) 11/16/21 01:20 Urine Color Yellow (Yellow) 11/16/21 01:20 Urine Appearance Clear (CLEAR) 11/16/21 01:20 Urine pH 5 (5-7) 11/16/21 01:20 Ur Specific [place] 1.025 (1.005-1.030) 11/16/21 01:20 Urine Protein Neg (Negative) 11/16/21 01:20 Urine Glucose (UA) Norm (Normal) 11/16/21 01:20 Urine Ketones Negative (Negative) 11/16/21 01:20 Urine Blood Trace (Negative) H 11/16/21 01:20 Urine Nitrate Negative (Negative) 11/16/21 01:20 Urine Bilirubin Neg (Negative) 11/16/21 01:20 Urine Urobilinogen Norm mg/dL (Negative) 11/16/21 01:20 Ur Leukocyte Esterase Negative (Negative) 11/16/21 01:20 Urine RBC 0-4 /hpf (0-2) H 11/16/21 01:20 Urine WBC None /hpf (0-5) 11/16/21 01:20 Ur Squamous Epith Cells 0-4 /hpf (0-5) H 11/16/21 01:20 Amorphous Sediment Not Reportable 11/16/21 01:20 Urine Bacteria None /hpf (NONE) 11/16/21 01:20 Urine Mucus 2+ /hpf 11/16/21 01:20 Discharge Plan Discharge Patient Disposition: Admitted As Inpatient Clinical Impression: Acute appendicitis Coding Level of Care Code ED Barrel Turner for Cameron Fwd Exam Comprehensive
[2021-11-16 01:27] LABS: Basophils # 0.1 10^3/uL (0.0-0.1); Basophils % 0.3 %; Eosinophils # 0.3 10^3/uL (0.0-0.8); Eosinophils % 1.7 %; Hematocrit 42.1 % (37.0-47.0); Hemoglobin 13.5 g/dL (11.5-15.3); Lymphocytes # 2.1 10^3/uL (0.8-4.8); Lymphocytes % 13.1 %; Mean Corpuscular HGB Conc 32.1 g/dL (30.0-36.0); Mean Corpuscular Hemoglobin 28.2 pg (28.0-34.0); Mean Corpuscular Volume 87.9 fl (81-99); Mean Platelet Volume 9.2 fL (7.4-10.4); Monocytes # 0.7 10^3/uL (0.2-0.9); Monocytes % 4.6 %; Neutrophils # 12.85 10^3/uL (1.8-7.7); Neutrophils % 79.8 %; Nucleated Red Blood Cells % 0 %; Platelet Count 373 10^3/cmm (130-400); Red Blood Count 4.79 10^6/uL (4.1-5.3); Red Cell Distribution Width 13.2 % (12.1-15.1); White Blood Count 16.1 10^3/uL (4.0-10.0)
[2021-11-16] MEDS: HYDROmorphone 1 mg/mL INJ 1 mL 0.5 MG IVP (01:32)
[2021-11-16] MEDS: ondansetron 2 mg/ML SDV 2 mL 4 MG IVP (01:33)
[2021-11-16 01:52] LABS: Alanine Aminotransferase 26 U/L (0-33); Albumin Level 4.3 g/dL (3.5-5.2); Alkaline Phosphatase 84 U/L (35-105); Anion Gap 17.3 (5-19); Aspartate Amino Transferase 15 U/L (0-32); Blood Urea Nitrogen 11 mg/dL (6-20); Calcium 9.3 mg/dL (8.5-10.5); Carbon Dioxide 23 mmol/L (22-29); Chloride 101 mmol/L (98-107); Globulin 2.5 g/dL (1.3-4.6); Glomerular Filtration Rate 98.9 mL/min (90-130); Glucose 119 mg/dL (65-115); Lipase 20 U/L (13-60); Osmolality Calculated 285 mOsm/kg (285-295); Potassium 4.3 mmol/L (3.5-5.1); Sodium 137 mmol/L (136-145); Total Bilirubin 0.4 mg/dL (0.15-1.2); Total Protein 6.8 g/dL (6.6-8.7)
[2021-11-16 01:56] LABS: HCG, Serum Qual Negative (Negative)
[2021-11-16 01:57] LABS: Add Urine Microscopic? YES; Bilirubin Urine Neg (Negative); Blood Urine Trace (Negative); Glucose Urine UA Norm (Normal); Ketones Urine Negative (Negative); Leukocyte Esterase Urine Negative (Negative); Nitrate Urine Negative (Negative); Protein Urine Neg (Negative); Specific Gravity, Urine 1.025 (1.005-1.030); Urine Appearance Clear (CLEAR); Urine Color Yellow (Yellow); Urobilinogen Urine Norm (Negative); pH Urine 5 (5-7)
[2021-11-16 01:58] LABS: Mucus Urine 2+ /hpf; RBC Urine 0-4 /hpf (0-2); Squamous Epithelial Cell Urine 0-4 /hpf (0-5)
[2021-11-16 01:59] LABS: Add Urine Culture? No
[2021-11-16] MEDS: piperacillin-tazobactam 3.375 GM in sodium chloride 0.9% (plus) 50 ML IV ×3 (02:04→19:34)
[2021-11-16] MEDS: sodium chloride 0.9% 1,000 ML 100 ML IV ×2 (04:21→20:19)
[2021-11-16] MEDS: morphine 4 mg/mL SDV 1 mL IVP ×2 (06:07→22:56)
--- NOTE | 2021-11-16 06:52 | P.HP_ITS ---
Providers/Chief Complaint Admitting Physician: Jam Smith MD Chief Complaint: ABD Pain History of Present Illness Ms. Analisa Cook is a pleasant 31 year old female presents to the emergency department with abdominal pain describes it as being sharp with sudden onset of the right lower quadrant. Associated with nausea but no vomiting. Is not being referred. Denies any dysuria or change in bowel habits. Patient presented to the emergency department with abdominal pain for the past few hours that started around 5:55 PM and further work-up did show leukocytosis of 16.1, hemoglobin 15.5, hematocrit 42.1, platelets 373, sodium 137, potassium 4.[address] of the abdomen pelvis was done and showed 1. Findings compatible with acute appendicitis, see above details. 2. 55 x 46 x 47 mm right ovarian cyst, see above discussion. 3. No free air or bowel distention. 4. Other findings discussed above. General was consulted for further evaluation management. Review of Systems General: Reports: 10 or more systems reviewed and unremarkable except in HPI and below Medications/Allergies Home Medications Medication Instructions Recorded Confirmed Last Taken Type phentermine 37.5 mg tablet 37.5 mg PO DAILY 11/16/21 11/16/21 Unknown History Allergies Allergy/AdvReac Type Severity Reaction Status Date / Time No Known Allergies Allergy Verified 11/16/21 08:29 PFSH Acute PFSH: Medical History Acute pharyngitis Allergic rhinitis due to allergen Anxiety disorder Depression Hypothyroidism No pertinent past medical history neghx: htn,dm,dvt/pe PCP: none Obesity Psychiatric care Symptomatic cholelithiasis Surgical History H/O adenoidectomy History of oral surgery wisdom teeth Family History Grandfather Diabetes Paternal grandfather Stroke Paternal grandfather Hypertension Paternal Colon cancer Maternal grandfather Father Diabetes Heart disease Grandmother Diabetes Paternal grandfather Denies family history of Ovarian cancer Hyperlipidemia Breast cancer Anesthesia complication Family history of thyroid problem Bleeding disorder Uterine cancer Social History Smoking and tobacco status: never smoked Female Reproductive History: Date of last menstrual period: 11/16/21 Vitals/I&O/Wt Last Vital Signs Temp 97.9 F 11/16/21 04:29 Pulse 87 11/16/21 04:29 Resp 18 11/16/21 06:07 BP 128/79 11/16/21 04:29 Pulse Ox 97 11/16/21 04:29 O2 Del Method 11/16/21 03:56 11/15/21 11/15/21 11/16/21 14:59 22:59 06:59 Intake Total 50 / 50 Balance 50 / 50 Weight last 48 hrs Weight 219 lb Physical Exam Const: COMMON NORMALS: no acute distress and patient oriented x3 GENERAL APPEARANCE: cooperative ORIENTATION/CONSCIOUSNESS: Yes awake, Yes oriented to person, Yes oriented to place and Yes oriented to time HENMT: COMMON NORMALS: normocephalic HEAD & SCALP: normocephalic Eye: COMMON NORMALS: Equal, round and reactive pupils present and no scleral icterus PUPIL: Yes Equal, round and reactive pupils present Lymph: LYMPHATIC: no lymphadenopathy noted Chest: COMMONS NORMALS: normal inspection of the chest Resp: COMMON NORMALS: normal respiratory effort and clear to auscultation bilaterally AUSCULTATION: clear to auscultation bilaterally Cardio: COMMON NORMALS: S1 normal heart sound present and S2 normal heart sound present; negative for No murmurs present (Cardio) HEART SOUNDS: S1 normal heart sound present and S2 normal heart sound present GI: COMMON NORMALS: Soft to palpation; negative for No hepatosplenomegaly present INSPECTION: Yes normal to inspection PALPATION: Yes Soft to palpation, No Firmness to palpation present (GI), Yes Tenderness to palpation present (GI) (Right lumbar and right lower quadrant with localized guarding at McBurney's), No Guarding due to palpation present (GI), No Rigid due to palpation and No No hepatosplenomegaly present Neuro: COMMON NORMALS: patient oriented x3 SENSORIUM/ORIENTATION: Yes oriented to person, Yes oriented to place and Yes oriented to time Psych: COMMON NORMALS: mental status grossly normal Skin: COMMON NORMALS: no rashes or lesions noted GENERAL SKIN EXAM: no rashes or lesions noted Data : 11/16/21 01:20 11/16/21 01:20 A&P Assessment and plan (1) Acute appendicitis: After thorough history physical examination and reviewing the chart and images with my personal interpretion, I agree on the presence of acute appendicitis and right ovarian cyst in addition to intrauterine device. I counseled the patient for laparoscopic appendectomy possible open. Indications, risks, benefits and alternatives were all discussed with the patient and did agree to proceed. Rationale was carefully and clearly discussed with the patient.Appropriate informed consent have been reviewed and signed (2) Ovarian cyst: Based on incidental finding of right ovarian cyst on the CT scan of the abdomen and pelvis and in the presence of acute appendicitis, I elected to discuss the case over the phone with Dr. Cox wire rope sling maker on-call and she will be seeing the images. And she would make herself available to come intraoperatively to evaluate the ovarian cyst herself. I do appreciate your input Already talked with the patient and was updated with my discussion with gyneco logy service. Regarding the finding of the ovarian cyst with gynecology service. And I made her aware of potential intervention from their side. Attestations Medical Necessity Statement*: Observation status for perioperative care Coding Level of Care Code Acute Dental Billing Specialist for Chg Fwd Exam Comprehensive Diagnoses Acute appendicitis K35.80 Ovarian cyst N83.209
--- NOTE | 2021-11-16 09:34 | PC.CHAP ---
Pastoral Care Encounter/Spiritual Assessment Type of Contact [] Declined golf club repairer visit [] Patient/Family/Request visit [] Outpatient visit [] Follow-up visit [] Physician referral [] Code/Alert [x] Routine visit [] Staff referral [] Actively dying [] Patient sleeping [] Family support [] [] Out of room [] Palliative care [] [] Receiving care in room [] Pre-surgical visit [] Trauma [] Long length of stay [] ICU visit [] Other: Relational/Emotional Strength [x] Patient feels connected with others/family/visitors/staff [] Distress [] Loneliness/isolation [] Abandonment Spirituality of Patient [x] Person of Karen [] Attends Sikh of their Karen [] Believes in Prayer [] Reads Bible or Mandaeism materials [x] There are Spiritual issues to be addressed Geographical Historian Interventions [x] Prayer [x] Active listening [x] Non-anxious presence [x] Spiritual/emotional support [] Crisis/trauma care [] Spiritual counseling [] Bereavement support [] Provided bereavement packet [] Provided Bible/devotional materials [] Provided toy/stuffed animal, coloring book to patient or family member [] Provided Communion [] Anointing/[place] [] Salvation [x] Completed spiritual assessment [] Other: Impact on Illness or Injury [] Angry [] Fearful [] Anxious [] Often cries [] Exhaustion [] Unable to work [] Unable to attend baptism [] Unable to walk/stand [] Unable to read [] Unable to drive [] Unable to eat/drink [] Unable to sleep [] Unable to be with family [] Patient intubated [] Other: Summary Pt undergoing surgery today. Not concerned, feels confident. May be released later today if all goes well or even tomorrow. When asked if a person of karen, she said she was nicole . She did accept prayer. Time spent with patient 10m
--- NOTE | 2021-11-16 09:40 | ANES.PREANE2 ---
Pre-Anesthetic Assessment Height/Weight: Height 1.63 m Weight 99.337 kg Temp Pulse Resp BP Pulse Ox O2 Del Method 98.2 F 79 20 H 127/77 96 11/16/21 07:07 11/16/21 07:07 11/16/21 07:07 11/16/21 07:07 11/16/21 07:07 11/16/21 07:07 Preop Diagnosis: acute appendicitis Operation Date: 11/16/21 12:00 Proposed Procedures p Laparoscopic Appendectomy(Not Applicable) - Jam Smith MD Familial anesthetic complications: None Was Beta Mendel taken within 24 hours: N/A Was Clonidine taken within 24 hours: N/A Social No alcohol and No tobacco Exam alert, oriented x 3, clear to auscultation bilaterally and regular rate & rhythm Airway Submandibular: within normal limits Cervical ROM: within normal limits Mallampati: Class III Dentition: full History/ROS No significant complaints Pulmonary Acute pharyngitis CV/HEM None reported None reported Hepatic None reported GI Acute appendicitis Metabolic Thyroid Disease Obese Neuropsych Anxiety and Depression PTSD Anesthetic Plan ASA status: 2 Anesthesia: Anesthesia Evaluation and General Other: We discussed risk and benefits of general anesthesia including PONV, sore throat (sometimes severe), corneal abrasion, positioning and peripheral nerve injuries, life threatening allergic reaction, post operative ICU admission requiring prolonged intubation, stroke, heart attack, , and rare incidences of recall. Patient consents to proceed with general anesthesia. Risk of > 500 ml blood loss (7ml/kg in children): No Medications/Allergies Home Medications Medication Instructions Recorded Confirmed Last Taken Type phentermine 37.5 mg tablet 37.5 mg PO DAILY 11/16/21 11/16/21 Unknown History Allergies Allergy/AdvReac Type Severity Reaction Status Date / Time No Known Allergies Allergy Verified 11/16/21 08:29 Current Medications Generic Name Dose Route Start Last Admin Trade Name Freq PRN Reason Stop Dose Admin Sodium Chloride 1,000 mls @ 100 mls/hr 11/16/21 03:31 11/16/21 04:21 Sodium Chloride 0.9% IV 100 mls/hr .Q10H MARY Administration Piperacillin Sod/Tazobactam 50 mls @ 12.5 mls/hr 11/16/21 08:00 11/16/21 08:19 Sod 3.375 gm/ Sodium Chloride IV 12.5 mls/hr Q8H MARY Administration Protocol Morphine Sulfate 4 mg 11/16/21 03:31 11/16/21 06:07 Morphine 4 Mg/Ml Sdv 1 Ml IVP 4 mg Q4H PRN Administration SEVERE PAIN PFSH Anesthesia Medical History Acute pharyngitis Allergic rhinitis due to allergen Anxiety disorder Depression Hypothyroidism No pertinent past medical history neghx: htn,dm,dvt/pe PCP: none Obesity Psychiatric care Symptomatic cholelithiasis Surgical History H/O adenoidectomy History of oral surgery wisdom teeth Family History Grandfather Diabetes Paternal grandfather Stroke Paternal grandfather Hypertension Paternal Colon cancer Maternal grandfather Father Diabetes Heart disease Grandmother Diabetes Paternal grandfather Denies family history of Ovarian cancer Hyperlipidemia Breast cancer Anesthesia complication Family history of thyroid problem Bleeding disorder Uterine cancer Social History Smoking and tobacco status: never smoked Female Reproductive History Date of last menstrual period: 11/16/21 Data Anesthesia : 11/16/21 01:20 11/16/21 01:20 Short CBC 11/16/21 Range/Units 01:20 WBC 16.1 H (4.0-10.0) 10^3/uL Hgb 13.5 (11.5-15.3) g/dL Hct 42.1 (37.0-47.0) % MCV 87.9 (81-99) fl Plt Count 373 (130-400) 10^3/cmm Neut % (Auto) 79.8 % Neut # (Auto) 12.85 H (1.8-7.7) 10^3/uL BMP 11/16/21 01:20 Sodium 137 Potassium 4.3 Chloride 101 Carbon Dioxide 23 BUN 11 Creatinine 0.7 Glucose 119 H Calcium 9.3 Liver Function 11/16/21 Range/Units 01:20 Total Bilirubin 0.4 (0.15-1.2) mg/dL AST 15 (0-32) U/L ALT 26 (0-33) U/L Alkaline Phosphatase 84 (35-105) U/L Albumin 4.3 (3.5-5.2) g/dL Urine 11/16/21 Range/Units 01:20 Urine Color Yellow (Yellow) Urine Appearance Clear (CLEAR) Urine pH 5 (5-7) Ur Specific [place] 1.025 (1.005-1.030) Urine Protein Neg (Negative) Urine Glucose (UA) Norm (Normal) Urine Ketones Negative (Negative) Urine Nitrate Negative (Negative) Urine Bilirubin Neg (Negative) Ur Leukocyte Esterase Negative (Negative) Urine RBC 0-4 H (0-2) /hpf Urine WBC None (0-5) /hpf Cardiac Studies: No Data to Display
[2021-11-16] MEDS: heparin 5,000 unit/mL INJ 1 mL 2000 UNIT SUBCUT (11:53)
[2021-11-16] MEDS: diphenhydrAMINE 50 mg/mL SDV 1mL 12.5 MG IVP (12:17)
[2021-11-16] MEDS: fentaNYL 50 mcg/mL INJ 2mL IVP (12:18)
[2021-11-16] MEDS: sodium chloride 0.9% 1,000 ML 30 ML IV (12:19)
[2021-11-16] MEDS: acetaminophen 1,000 MG/100 ML PIGGYBACK 400 MG IV (12:20)
[2021-11-16] MEDS: scopolamine 1.5 Patch 1 PATCH TRANSDERMA (12:20)
[2021-11-16] MEDS: lidocaine 2% INJ 20 mL INJECTION (13:31)
[2021-11-16 14:05] LABS: Cyto Order Verification Order Verified
--- NOTE | 2021-11-16 14:07 | P.OP_ITS ---
Operative Report Date of procedure: November 16, 2021 Pre-op diagnosis: Preop Diagnosis acute appendicitis Post-op diagnosis: Acute appendicitis with thickened mesentery Right paratubal cyst Procedure done: Laparoscopic appendectomy Laparoscopic cystostomy and aspiration of right paratubal cyst per Dr. Cox Specimens removed/disposition: Appendix Right paratubal cyst cytology per gynecology service Surgeon: Jam Smith MD-surgeon Theatre Arts Professor Dr. Cox Theatre Arts Professor: information technology teacher Mary and Emily Circulating nurses Shabana and Nikki Anesthesia: General (application designer page) Estimated blood loss (mL): 15 IV fluids (mL): 1,000 Procedure: Patient after being identified in the holding area and asked to void urine, and informed consent per chart ,patient was then taken back to the OR placed in supine position got intubated by anesthesia left arm was tucked tucked ,Timeout was done verifying the patient's name/date of /planned procedure and destination after the procedure, all were in agreement., preoperative antibiotics administered per protocol. prep and drape of the abdomen was done under the usual sterile technique. Started by longitudinal skin incision supraumbilical using a Bermudez trocar technique safe entry to the abdominal cavity was achieved verified by using 10 mm zero degree laparoscopy, switched to a 30? scope under direct visualization a suprapubic 5 mm trocar was inserted followed by another 5 mm trocar epigastric region , I was able to position the patient in an T Benjamin and left side down, noticed inferior to the Bermudez trocar insertion site omental adhesions that were taken down using Enseal device under direct visualization. Dissection of the prececal acutely inflamed appendix there was some adhesions towards the lateral pelvic wall that was taken down by sharp and blunt dissection using Enseal device, attention was deviated to the healthy base of the appendix where I had to switch the camera to 5 mm 30? scope got introduced through the epigastric region and through the Bermudez trocar under direct visualization a GI stapler 45 mm blue load was applied at the healthy part of the base of the appendix, and Enseal device was used to control the mesoappendix . The appendix was then retrieved in an Endo Catch bag, final survey was done of the abdomen and pelvis , irrigation with warm saline, and suction was obtained, were mercury fluid like in the pelvis due to reaction from the inflamed appendix. At this point Dr. Cox joined me to address the right paratubal cyst please see separate dictation Final look laparoscopy was done showing no other abnormalities or injuries, all trocars were taken out under direct visualization after the supraumblical trocar site was closed by #1 PDS sutures under direct vision using fascial closure device ,followed by skin closure using skin shyla of all trocar site incisions. infiltration of local lidocaine 2% was done to all incision sites.Dry dressing was applied. Count was completed at the end of the procedure for Molino , sponges and instruments Patient tolerated the procedure well and was transferred to the recovery area after extubation. I was present for the whole entire procedure
[2021-11-16] MEDS: racepinephrine 0.5 mL Neb (14:37)
[2021-11-16] MEDS: dexamethasone 4 mg/mL INJ (14:42)
[2021-11-16] MEDS: ipratropium-albuterol 3 mL Neb INHALATION (14:45)
--- NOTE | 2021-11-16 14:45 | P.PCN_ITS ---
PACU note Narrative: Patient brought to PACU by civil engineering director. On arrival patient breathing spontaneously, OPA. 10 LPM simple mask. In PACU nasal airway placed. I was making rounds in the PACU and noted poor air movement and sats declining. Hand mask ventilated by myself and civil engineering director on 100% FiO2 with rapid improve ment to mid 90s SpO2. Patient sat up from 20 degrees to 40 degrees HOB. Course upper airway sounds on auscultation, minimally responsive. 600 mg suggamdex administered. Respiratory called for possible initiation of BiPAP/CPAP. Trialed on simple mask again, however without jaw thrust sats again declined. Resumed gentle bag masking of patient. No improvement in responsiveness with BIPAP. Prepared for possible reintubation while continuing two hand bag mask ventilation. On initiation of propofol patient responded to profopol injection. 10 mg propofol injected total. Patient became more responsive to stimuli, fighting bag masking. Placed on simple mask, sats maintained in mid 90s. Racemic epinephrine administered. Additional dexamethasone administered for a total of 12 mg perioperatively. Duoneb administered. Patient sitting up, talking completely alert. Patient's significant other called to bedside, post operative course explained to him and I escorted him and patient to ICU for monitoring after racemic epinephrine.
--- NOTE | 2021-11-16 15:26 | P.CONIM_ITS ---
Providers/Reason For Consult Consulting Physician/Specialty*: Dory Cox MD, ALTERATION TAILOR Reason for Consult*: adnexal mass seen on CT. Requesting Physician: Dr. Hartley, General Surgery Attending Physician: Jam Smith MD History of Present Illness History of Present Illness Analisa Cook is a 31 year old female who was undergoing laparoscopy for acute appendicitis. On CT scan, she was shown to have a 5 cm cyst in her right adnexae. Dr. Hartley wanted me to look at the cyst and possibly remove it I scrubbed in. I determined that the cyst was a benign paratubal cyst. The only real risk with this type of cyst is tubal torsion due to the size. I punctured the cyst with a needle and jami about 40 ml of clear fluid from the cyst. I then enlarged the puncture site with scissors, so the cyst could drain and not re-accumulate. It will now resolve on its own. Dr. Hartley then continued with his surgery. Review of Systems General: Reports: 10 or more systems reviewed and unremarkable except in HPI and below Medications/Allergies Home Medications Medication Instructions Recorded Confirmed Last Taken Type phentermine 37.5 mg tablet 37.5 mg PO DAILY 11/16/21 11/16/21 Unknown History amoxicillin 875 mg-potassium 1 tab PO Q12H 5 days #10 tabs 11/17/21 Unknown Rx clavulanate 125 mg tablet hydrocodone 5 mg-acetaminophen 325 1 tab PO Q6H PRN pain #28 tabs 11/17/21 Unknown Rx mg tablet Allergies Allergy/AdvReac Type Severity Reaction Status Date / Time No Known Allergies Allergy Verified 11/16/21 08:29 Current Medications Generic Name Dose Route Start Last Admin Trade Name Freq PRN Reason Stop Dose Admin Diphenhydramine HCl 12.5 mg 11/16/21 11:39 11/16/21 12:17 Diphenhydramine 50 Mg/Ml Sdv 1ml IVP 12.5 mg ONCE PRN Administration NAUSEA Fentanyl 50 mcg 11/16/21 11:39 11/16/21 12:18 Fentanyl 50 Mcg/Ml Inj 2ml IVP 50 mcg Q10M PRN Administration Preop Pain Sodium Chloride 1,000 mls @ 100 mls/hr 11/16/21 03:31 11/16/21 04:21 Sodium Chloride 0.9% IV 100 mls/hr .Q10H MARY Administration Piperacillin Sod/Tazobactam 50 mls @ 12.5 mls/hr 11/16/21 08:00 11/16/21 11:30 Sod 3.375 gm/ Sodium Chloride IV Infused Q8H MARY Infusion Protocol Sodium Chloride 1,000 mls @ 30 mls/hr 11/16/21 11:45 11/16/21 13:56 Sodium Chloride 0.9% IV 11/17/21 11:44 Infused .Q24H MARY Infusion Morphine Sulfate 4 mg 11/16/21 03:31 11/16/21 06:07 Morphine 4 Mg/Ml Sdv 1 Ml IVP 4 mg Q4H PRN Administration SEVERE PAIN PFSH Acute PFSH: Medical History Acute pharyngitis Allergic rhinitis due to allergen Anxiety disorder Depression Hypothyroidism No pertinent past medical history neghx: htn,dm,dvt/pe PCP: none Obesity Psychiatric care Symptomatic cholelithiasis Surgical History H/O adenoidectomy History of oral surgery wisdom teeth Family History Grandfather Diabetes Paternal grandfather Stroke Paternal grandfather Hypertension Paternal Colon cancer Maternal grandfather Father Diabetes Heart disease Grandmother Diabetes Paternal grandfather Denies family history of Ovarian cancer Hyperlipidemia Breast cancer Anesthesia complication Family history of thyroid problem Bleeding disorder Uterine cancer Social History Smoking and tobacco status: never smoked Female Reproductive History: Date of last menstrual period: 11/16/21 Vitals/I&O/Wt Last Vital Signs Temp 98.1 F 11/16/21 11:40 Pulse 80 11/16/21 11:40 Resp 16 11/16/21 11:40 BP 107/70 11/16/21 11:40 Pulse Ox 93 11/16/21 11:40 O2 Del Method 11/16/21 11:40 11/16/21 11/16/21 11/16/21 06:59 14:59 22:59 Intake Total 50 / 50 1150 / 1150 Balance 50 / 50 1150 / 1150 Weight last 48 hrs Weight 219 lb Data : 11/17/21 03:45 11/17/21 03:45 Coding Level of Care Code Acute Weigh And Charge Worker for Cameron Flores
--- NOTE | 2021-11-16 15:46 | ANE.PACU2 ---
Inpatient post-anesthesia follow up: Airway intact: Yes Vital signs: Temperature 98.1 F Pulse Rate 79 Respiratory Rate 20 Blood Pressure 130/88 Pulse Oximetry 100 Oxygen Delivery Me thod Simple Mask Oxygen Flow Rate 8 Fraction of Inspir ed Oxygen Hydration adequate: Yes Nausea and vomiting: No Pain level: 3 Mental status: Baseline Additional Comments: Taken to ICU by CLINICAL QUALITY MANAGER, spontaneously breathing on simple mask, alert and oriented throughout. Handoff report given to GLASS FURNACE TENDER including fluids in/out, medications administered, and operative and post operative course. Report accepted.
--- NOTE | 2021-11-16 16:06 | SUR.PHASEI ---
When the pt was brought to me in Phase I recovery she was accompanied by CATERINA Bauer and CARIE Jordan. The pt was immediately put on 8L oxygen mask. The pt began to obstruct and her O2 sat began to drop into the 60s. I put an ear probe on her. Then a second finger pulse ox. Dr. Barker came over to assist. He asked me to call RT for CPAP. Two respiratory therapists came to assist. The pt was given duoneb, racepinepherine followed by a second duoneb treatment. Dr. Barker thought the pt would do best being observed for 3 to 4 hours after the racepinepherine was given. Because of this, it was decided the pt would go to ICU. Ilda Dodd RN called the Stand Up Forklift Operator and got an ICU bed set up for the pt. When I was given a bed number I called the ICU and gave the nurse Sharon report. Once stabilized and responsive the pt was then taken to ICU 2 by myself, Dr. Barker and CARIE Briggs. Bedside report was given to Sarah Spencer and Sharon.
[2021-11-16] MEDS: dexamethasone 4 mg/mL INJ IVP (17:25)
--- NOTE | 2021-11-16 17:32 | PC.NURSE ---
Pt is A&O x 4 with boyfriend at bedside. No complaints at this time.
[2021-11-16] MEDS: HYDROcodone-acetaminophen 5-325 mg Tablet 1 TAB PO (19:34)
[2021-11-17] VITALS (36 sets, daily range): BP systolic 101–134; BP diastolic 53–87; PULSE 64–105; RESP 13–19; TEMP 36.8–36.9; O2SAT 88–100
[2021-11-17] MEDS: piperacillin-tazobactam 3.375 GM in sodium chloride 0.9% (plus) 50 ML IV (02:09)
[2021-11-17 03:54] LABS: Hematocrit 38.2 % (37.0-47.0); Hemoglobin 11.5 g/dL (11.5-15.3); Mean Corpuscular HGB Conc 30.1 g/dL (30.0-36.0); Mean Corpuscular Volume 92.9 fl (81-99); Mean Platelet Volume 9.1 fL (7.4-10.4); Platelet Count 297 10^3/cmm (130-400); Red Blood Count 4.11 10^6/uL (4.1-5.3); Red Cell Distribution Width 13.2 % (12.1-15.1); White Blood Count 10.4 10^3/uL (4.0-10.0)
[2021-11-17] MEDS: HYDROcodone-acetaminophen 5-325 mg Tablet 1 TAB PO (04:03)
[2021-11-17 04:20] LABS: Anion Gap 13.4 (5-19); Blood Urea Nitrogen 6 mg/dL (6-20); Calcium 8.3 mg/dL (8.5-10.5); Carbon Dioxide 23 mmol/L (22-29); Chloride 105 mmol/L (98-107); Glomerular Filtration Rate 118.2 mL/min (90-130); Glucose 184 mg/dL (65-115); Osmolality Calculated 286 mOsm/kg (285-295); Potassium 4.4 mmol/L (3.5-5.1); Sodium 137 mmol/L (136-145)
[2021-11-17 05:02] LABS: Absolute Neutrophil 8.7 10^3/cmm (1.4-6.5); Absolute Segmented Neutrophil 8.7 10/cmm (1.6-7.1); Eosinophils 0 %; Lymphocytes 12 %; Lymphocytes Absolute 1.2 10^3/cmm (1.2-3.4); Monocytes Absolute 0.4 10^3/cmm (0.1-0.6); Platelet Estimate Normal (Normal); Segmented Neutrophils 84 %; Total Cells Counted 100 (0-100)
--- NOTE | 2021-11-17 06:23 | PC.NURSE ---
Shift Note Throughout shift, patient's oxygen saturation would decrease to as low as 82% while asleep. Nasal cannula at 2 L placed on patient for sleeping; oxygenation remained in the mid to high 90s. Additionally, patient's cardiac rhythm ranging from sinus tach to sinus arrhythmia. Dr. Smith aware of both situations; Sleep study for sleep apnea discussed at bedside with patient. Education materials provided. Patient verbalized understanding and stated no further questions.
[2021-11-17] MEDS: sodium chloride 0.9% 1,000 ML 100 ML IV (06:39)
--- NOTE | 2021-11-17 07:41 | PM.SDS ---
Short Stay Summary Providers Date of Admit/Discharge: 11/20/21 Attending Provider: Jam Smith MD Chief Complaint: ABD Pain HPI History of Present Illness Ms. Analisa Cook is a pleasant 31 year old female presents to the emergency department with abdominal pain describes it as being sharp with sudden onset of the right lower quadrant.? Associated with nausea but no vomiting.? Is not being referred.? Denies any dysuria or change in bowel habits.? Patient presented to the emergency department with abdominal pain for the past few hours that started around 5:55 PM and further work-up did show leukocytosis of 16.1, hemoglobin 15.5, hematocrit 42.1, platelets 373, sodium 137, potassium 4.[address] of the abdomen pelvis was done and showed 1. Findings compatible with acute appendicitis, see above details. 2. 55 x 46 x 47 mm right ovarian cyst, see above discussion. 3. No free air or bowel distention. 4. Other findings discussed above. General was consulted for further evaluation management. Patient undergone uneventful laparoscopic Review of Systems General: Reports: 10 or more systems reviewed and unremarkable except in HPI and below Home Meds/Allergies Home Medications and Allergies Home Medications Medication Instructions Recorded Confirmed Type phentermine 37.5 mg tablet 37.5 mg PO DAILY 11/16/21 11/16/21 History Allergies Allergy/AdvReac Type Severity Reaction Status Date / Time No Known Allergies Allergy Verified 11/20/21 09:00 PFSH Acute PFSH: Medical History Acute pharyngitis Allergic rhinitis due to allergen Anxiety disorder Depression Hypothyroidism No pertinent past medical history neghx: htn,dm,dvt/pe PCP: none Obesity Psychiatric care Sleep apnea Patient will require to have sleep studies and was advised to follow-up with PCP Symptomatic cholelithiasis Surgical History H/O adenoidectomy History of oral surgery wisdom teeth Family History Grandfather Diabetes Paternal grandfather Stroke Paternal grandfather Hypertension Paternal Colon cancer Maternal grandfather Father Diabetes Heart disease Grandmother Diabetes Paternal grandfather Denies family history of Ovarian cancer Hyperlipidemia Breast cancer Anesthesia complication Family history of thyroid problem Bleeding disorder Uterine cancer Social History Smoking and tobacco status: never smoked Female Reproductive History: Date of last menstrual period: 11/16/21 Vitals/I&O/Wt Last Vital Signs Temp 98.3 F 11/17/21 04:00 Pulse 78 11/17/21 06:00 Resp 15 11/17/21 04:00 BP 105/87 11/17/21 04:00 Pulse Ox 100 11/17/21 04:00 O2 Del Method 11/17/21 04:00 O2 Flow Rate 2 11/17/21 04:00 11/16/21 11/17/21 11/17/21 22:59 06:59 14:59 Intake Total 950 / 3100 2018 / 5118 Output Total 700 / 700 1100 / 1800 Balance 250 / 2400 918 / 3318 Weight last 48 hrs Weight 219 lb Physical Exam Narrative: Patient is conscious alert oriented X3 No apparent distress BMI 38 Head and neck examination PERRLA no masses no cervical lymphadenopathy no jaundice Cardiac examination audible S1-S2 no murmurs no gallops no arrhythmias Chest is clear bilateral,abscence of Rhonchi or wheezes,no surgical emphysema Abdomen nontender except slightly at the incision sites nondistended soft no organomegaly guarding or rigidity/no signs of peritonitis Extremities no cyanosis no clubbing no edema Hospital Course Hospital Course Patient undergone uneventful laparoscopic appendectomy for acute appendicitis, yet the postoperative she required more anesthesia postoperative care likely due to underlying undiagnosed obstructive sleep apnea associated with patient's obesity status. Please refer to anesthesia note with that regard. Because of the concern of patient's airway there was a potential consideration of reintubation yet the patient responded well to conservative management and received racemic epi per anesthesia. Patient was kept in the ICU postoperatively for closer observation on my service. She required some oxygen per nasal cannula during sleep as she did have lower saturation in the late 80s but when she is fully awake she does perform well. Patient's pain was under appropriate control and she tolerated p.o. intake and has been passing gas. Was advanced to full liquid diet and she was given pharmacologic DVT prophylaxis. Patient met the appropriate and safe criteria at to be discharged home. With the plan to follow-up with primary care provider service for sleep studies. Patient was ambulatory. Appropriate education was given to the patient and the plan to follow-up with me at the surgery office to discuss pathology of the appendix and also patient was given an appointment for follow-up with Dr. Cox as an outpatient. Discharge Summary Patient met the appropriate and safe criteria to be discharged home on pain medications and advance diet as tolerated. Appropriate education was given to the patient. I did elect to send the patient on Augmentin for 5 days due to the nature of inflamed appendix. SSS Data Data Completed and Pending: Completed Studies During Hospitalization Category Date Time Status CT abdomen pelvis wo con [id number] Stat Cat Scan 11/16/21 01:13 Completed Pending at discharge Category Date Time Status Cytology [PTH] Ro utine Pth 11/16/21 13:43 Received Pathology: Surgic al [PTH] Routine Pth 11/16/21 14:15 Ordered Procedures Performed: Operative Report Date of procedure: November 16, 2021 Pre-op diagnosis: Preop Diagnosis ? acute appendicitis? Post-op diagnosis: Acute appendicitis with thickened mesentery Right paratubal cyst Procedure done: Laparoscopic appendectomy Laparoscopic cystostomy and aspiration of right paratubal cyst per Dr. Cox Specimens removed/disposition: Appendix Right paratubal cyst cytology per gynecology service Surgeon: Jam Smith MD-surgeon Wastewater Treatment Plant Operator Dr. Cox Wastewater Treatment Plant Operator: generation technologist Ann Circulating nurses Shabana and Nikki Anesthesia: General (medical office rep page) Estimated blood loss (mL): 15 IV fluids (mL): 1,000 Procedure: Patient after being identified in the holding area and asked to void urine, and informed consent per chart ,patient was then taken back to the OR placed in supine position got intubated by anesthesia left arm was tucked tucked ,Timeout was done verifying the patient's name/date of /planned procedure? and destination after the procedure, all were in agreement., preoperative antibiotics administered per protocol. prep and drape of the abdomen was done under the usual sterile technique. Started by longitudinal skin incision supraumbilical using a Bermudez trocar technique safe entry to the abdominal cavity was achieved verified by using 10 mm zero degree laparoscopy, switched to a 30? scope under direct visualization a? suprapubic 5 mm trocar was inserted followed by another? 5 mm trocar epigastric region , I was able to position the patient in an T Benjamin and left side down, noticed inferior to the Bermudez trocar insertion site omental adhesions that were taken down using Enseal device under direct visualization.? Dissection of the prececal acutely inflamed appendix there was some adhesions towards the lateral pelvic wall that was taken down by sharp and blunt dissection using Enseal device, attention was deviated to the healthy base of the appendix where I had to switch the camera to 5 mm 30? scope got introduced through the epigastric region and through the Bermudez trocar under direct visualization a GI stapler 45 mm blue load was applied at the healthy part of the base of the appendix, and Enseal device was used to control the mesoappendix . The appendix was then retrieved in an Endo Catch bag, final survey was done of the abdomen and pelvis , irrigation with warm saline, and suction was obtained, were mercury fluid like in the pelvis due to reaction from the inflamed appendix. At this point Dr. Cox joined me to address the right paratubal cyst please see separate dictation Final look laparoscopy was done showing no other abnormalities or injuries, all trocars were taken out under direct visualization after the supraumblical trocar site was closed by #1 PDS sutures under direct vision using fascial closure device ,followed by skin closure using skin shyla of all trocar site incisions.? infiltration of local lidocaine 2% was done to all incision sites.Dry dressing was applied. Count was completed at the end of the procedure for [place] , sponges and instruments Patient tolerated the procedure well and was transferred to the recovery area after extubation. I was present for the whole entire procedure Dictated By: Jam Smith MD Signed By: Jam Smith MD Diagnoses at Discharge Discharge Diagnosis (1) Acute appendicitis: Details from hospital stay: Condition resolved and patient was discharged home Status: Resolved (2) Ovarian cyst: Details from hospital stay: Follow-up with Dr. Cox as an outpatient Status: Resolved Discharge Plan Discharge Patient Disposition: Home Condition: Stable Prescriptions: New amoxicillin-pot clavulanate 875-125 mg tablet 1 tab PO Q12H 5 Days Qty: 10 0RF hydrocodone-acetaminophen 5-325 mg tablet 1 tab PO Q6H PRN (Reason: pain) Qty: 28 0RF Continued phentermine 37.5 mg tablet 37.5 mg PO DAILY Discharge Orders: Discharge Order (Routine); Ordered 11/17/21 Ordered By: Jam Smith Referrals: Jam Smith MD [Physician] - (Return to surgery office in 1 week November 23 at 2:15) Dory Cox MD [Physician] - (Return to gynecology service first available December 01 at 8:15 ) Discharge Diet: Advance as tolerated Discharge Activity: Limit activity as instructed Patient Instructions: Appendicitis (GEN), Opioid Safety, Post Anesthesia Care Activity Restrictions/Additional Instructions: 1. Patient can shower after 48 hours from surgery 2. Remove secondary dressing can take down after 48 hours. 3. Up and walking as tolerated 4. Do not lift more than 5 pounds first 2 weeks after surgery and not more than 25 pounds 6 to 8 weeks after surgery. 5. Do not operate heavy machinery or drive while using pain medications. 6.Contact the office or return to the ER for worsening nausea vomiting fevers or chills, or noticing any redness around incision sites or discharge. Patient's Health Concerns: Clinically suspected sleep apnea that would require sleep studies and potential CPAP. Assessment: 31-year-old female patient with history of acute appendicitis and right paratubal cyst Plan of Treatment: Discharge home after laparoscopic appendectomy and cystostomy. Of right paratubal cyst Return to surgery office as scheduled Return to gynecology office as scheduled Follow-up with primary care provider to schedule sleep studies as an outpatient Education about the importance of weight management Goals: Sleep studies as an outpatient Weight management Follow-up with gynecology service Attestations Medical Necessity Statement*: Observation status. Patient required to be in the ICU postoperatively for closer observation for potential airway compromise. Time Spent in Patient Care*: greater than 30 min Specific Discharge Activities: Specific discharge activities: educating patient and educating and/or supporting family/caregiver Status at Discharge: Cognitive status at discharge: cognitively intact, Behavioral status at discharge: cooperative, Functional status at discharge: independent ambulation Overall status at discharge: patient is progressing back to baseline Quality Metrics Clinical Quality Measures: [ No reported AMI, CVA or VTE this stay] Coding Level of Care Code Acute Multiple Pressure Riveter Operator for Chg Fwd Diagnoses Acute appendicitis K35.80 Ovarian cyst N83.209
--- NOTE | 2021-11-17 10:14 | PC.NURSE ---
Pt was given all education and discharge instructions. Incisions on abdomen were covered with dry dressing. No bleeding noted. Patient also reported flatulence this AM.
== END 2021-11-17 10:05 | disposition home or self-care (01) ==
LOC: ER 02:02 → MEDSURG 03:31 → ICU 15:06
PROVIDERS: Obstetrics & Gynecology; Admitting Provider Surgery; Emergency Provider Emergency Medicine; Visit Provider Surgery
PROC: 0DTJ4ZZ Resection of Appendix, Percutaneous Endoscopic Approach (ICD-10-PCS; CPT 44970; principal; 2021-11-16 12:00)
PROC: (CPT 58662; 2021-11-16 12:00)
DX: K35.80 Unspecified acute appendicitis (principal); N83.209 Unspecified ovarian cyst, unspecified side; F41.9 Anxiety disorder, unspecified; F32.A Depression, unspecified; E66.9 Obesity, unspecified; Z68.37 Body mass index [BMI] 37.0-37.9, adult; E03.9 Hypothyroidism, unspecified
CPT/HCPCS: 44970; 49322; 36415; 74176; 80048; 80053; 81001; 83690; 84703; 85007; 85025; 85027; 88108; 88304; 96365; 96366; 96375; 96376; 99285; G0378; J0330; J1100; J1170; J1200; J1644; J1885; J2250; J2270; J2405; J2543; J2704; J2710; J3010; J3490; J3535; J7030

== ENCOUNTER → 2022-07-27 14:05 | Outpatient (BNVA) | payer OTHER, SELFPAY | PROVIDERS: Visit Provider Nurse Practitioner Psychiatric/Mental Health | DX: Z03.89 Encounter for observation for other suspected diseases and conditions ruled out (principal) | CPT/HCPCS: 80307 ==

== ENCOUNTER 2024-06-13 20:15 | Emergency (ER) | payer SELFPAY ==
--- NOTE | 2024-06-13 20:26 | ECG_ITS ---
[facility] Test Date: 2024-06-13 Pat Name: Analisa Cook Department: Room: Gender: Female Transfusion Aide: : 1990 Requested By: Harry Bass Order Number: [id number] Salvador MD: Thomas Dawkins M.D. Measurements Intervals [place] Rate: 90 P: 29 ME: 153 QRS: 54 QRSD: 82 T: 40 QT: 337 QTc: 413 Interpretive Statements SINUS RHYTHM LOW QRS VOLTAGE IN PRECORDIAL LEADS [QRS DEFLECTION < 1.0 mV IN CHEST LEADS] No previous ECG available for comparison Electronically Signed On 06-16-2024 09:22:02 CDT by Thomas Dawkins M.D. [email or web address]
[2024-06-13 20:27] VITALS: BP 143/84; PULSE 86; RESP 14; TEMP 36.9; O2SAT 98
[2024-06-13 20:41] VITALS: BP 142/85; PULSE 86; RESP 15; O2SAT 98
--- NOTE | 2024-06-13 21:13 | XRR_ITS ---
PROCEDURE INFORMATION: Exam: XR Chest Exam date and time: 06/13/2024 9:22 PM Age: 33 years old Clinical indication: Chest pressure; C/O left sided chest pain radiating into the left neck/ shoulder/ back. Woke up with the pain this am and it has increased throughout the day. Describes the pain sharp, pressure, stabbing. Rates pain 8/10. Has felt tired all day. ; Additional info: Cp TECHNIQUE: Imaging protocol: Radiologic exam of the chest. Views: 1 view. COMPARISON: CT abdomen pelvis wo con [id number] 11/16/2021 1:25 AM FINDINGS: Lungs: Unremarkable. No consolidation. Pleural spaces: Unremarkable. No pleural effusion. No pneumothorax. Heart/Mediastinum: Unremarkable. No cardiomegaly. Bones/joints: Unremarkable. XR/XR chest 1V portable [id number] IMPRESSION: No acute findings.
--- NOTE | 2024-06-13 21:15 | ED_ITS ---
HPI - Chest Pain 2 General: Chief Complaint: Chest Pain Stated Complaint: CP Time Seen by Provider: 06/13/24 20:42 Source: patient Mode of arrival: ambulatory Limitations: no limitations History of Present Illness: 33yo female presents with left-sided dianne st discomfort that she woke up with this morning. Patient reports she initially thought she slept wrong, but it has worsened throughout the day. States that it now radiates into the left shoulder and into the left neck. Patient reports she does have sharp pain, especially with deep breathing and movements. Patient states that her father had a heart attack with triple bypass at the age of 36. Patient denies personal cardiac history, cough, congestion, difficulty breathing, shortness of breath, fever, chills, body aches, any other concern at this time. Patient states she does have ParaGard, decreased likelihood of . Associated symptoms: Deny dyspnea, fever(s), nausea, palpitations or vomiting Related Data Home Medications ?Medication ?Instructions ?Recorded ?Confirmed copper 380 square mm intrauterine intrauterine 2 04/01/24 device (ParaGard T 380A) Previous Rx's ?Medication ?Instructions ?Recorded dextroamphetamine-amphetamine ER 20 mg PO QAM 30 days #30 caps 10/25/23 20 mg 24hr capsule,extend release vilazodone 40 mg tablet 40 mg PO DAILY #30 tabs 03/15 10/06 dextroamphetamine-amphetamine ER 20 mg PO .q am 30 day s #30 caps 04/03/24 20 mg 24hr capsule,extend release dextroamphetamine-amphetamine ER 20 mg PO QAM 30 days #30 caps 04/03/24 20 mg 24hr capsule,extend release dextroamphetamine-amphetamine ER 20 mg PO QAM 30 days #30 caps 04/03/24 20 mg 24hr capsule,extend release cyclobenzaprine 5 mg tablet 5 mg PO TID PRN muscle spa sm #20 06/13/24 tabs Allergies Allergy/AdvReac Type Severity Reaction Status Date / Time No Known Allergies Allergy Verified 06/13/24 20:31 Review of Systems 2 Const: Denies: fever(s), chills or body aches Card: Reports: chest pain; Denies: palpitations Resp: Denies: dyspnea or productive cough GI: Denies: nausea or vomiting Musc: Denies: back pain Neuro: Denies: headache(s) [facility] ED 2 PFSH: Medical History (Updated 06/13/24 @ 22:35 by JUAN Ge) ADHD (attention deficit hyperactivity disorder), combined type Sleep apnea Patient will require to have sleep studies and was advised to follow-up with PCP Acute pharyngitis Allergic rhinitis due to allergen No pertinent past medical history neghx: htn,dm,dvt/pe PCP: none Psychiatric care Depression Anxiety disorder Obesity Symptomatic cholelithiasis Hypothyroidism Surgical History H/O adenoidectomy History of oral surgery wisdom teeth Family History Grandfather Diabetes Paternal grandfather Stroke Paternal grandfather Hypertension Paternal Colon cancer Maternal grandfather Father Diabetes Heart disease Grandmother Diabetes Paternal grandfather Denies family history of Ovarian cancer Hyperlipidemia Breast cancer Anesthesia complication Family history of thyroid problem Bleeding disorder Uterine cancer Social History Smoking and tobacco/nicotine status: never used tobacco/nicotine Substance/Drug Use: never Physical Exam 2 Const: COMMON NORMALS: no acute distress, patient oriented x3, healthy appearing and alert GENERAL APPEARANCE: cooperative O RIENTATION/CONSCIOUSNESS: Yes awake OTHER: Patient is sitting upright on the stretcher no acute distress. She is able to give history with no difficulty. She is interactive with exam appropriately. No family at bedside at time of exam HENMT: COMMON NORMALS: normocephalic HEAD & SCALP: normocephalic Neck/C-Spine: COMMON NORMALS: full ROM Chest: CHEST: Yes Symmetrical chest wall rise, No crepitus and Yes tenderness clavicle on the left and pectoral muscle Resp: COMMON NORMALS: normal respiratory effort, No use of accessory muscles and clear to auscultation bilaterally EFFORT & INSPECTION: Yes able to speak in complete sentences AUSCULTATION: clear to auscultation bilaterally Cardio: COMMON NORMALS: regular rate RATE: regular rate Extremity: COMMON NORMALS: full ROM NARRATIVE EXTREMITY EXAM: MAEW Neuro: COMMON NORMALS: patient oriented x3 SENSORIUM/ORIENTATION: Yes alert Psych: ATTITUDE: Yes calm Course 2 Vital Signs: Vital signs: Vital Signs Temperature 98.4 F 06/13/24 20:27 Pulse Rate 78 05/02/25 22:16 Respiratory Rate 19 H 06/13/24 22:16 Blood Pressure 124/76 06/13/24 22:16 Pulse Oximetry 99 06/13/24 22:16 Oxygen Delivery Me thod Room Air 06/13/24 22:16 MDM - Chest Pain Medical Decision Making 33yo female presents with left-sided chest discomfort that she woke up with this morning. Patient reports she initially thought she slept wrong, but it has worsened throughout the day. States that it now radiates into the left shoulder and into the left neck. Patient reports she does have sharp pain, especially with deep breathing and movements. Patient states that her father had a heart attack with triple bypass at the age of 36. Patient denies personal cardiac history, cough, congestion, difficulty breathing, shortness of breath, fever, chills, body aches, any other concern at this time. Patient states she does have ParaGard, decreased likelihood of . Patient is nontoxic in appearance. Vital signs are stable. No leukocytosis, white blood cell count is 10.71. No indication of anemia, hemoglobin is 13.6. No electrolyte, renal, or hepatic abnormalities noted. Baseline troponin is less than 6. EKG does show sinus rhythm. There is no ST elevation or depression noted. Chest x-ray with no acute findings. Discussed these findings with patient's. Advised we do not need to wait for 2-hour troponin as her pain started at 530 this morning and her baseline would be elevated. Discussed with patient this is likely muscular in nature, especially with pain being reproduced with palpation. Patient did receive ketorolac while in the emergency department. Short course cyclobenzaprine sent to patient's pharmacy to help with the muscular pain. Recommend patient follow-up with primary care, call Sunday with an update of symptoms and to discuss recheck. Return precautions provided. Patient states understanding and has no further questions or concerns at this time. Medical Records I reviewed the patient's medical records. Lab Data I reviewed the patient's lab results. 06/13/24 21:22 06/13/24 21:22 Radiology Impressions Chest X-Ray 06/13/24 21:13 IMPRESSION: No acute findings. Laboratory Results WBC 10.71 10^3/uL (3.29-11.43) 06/13/24 21:22 RBC 4.69 10^6/uL (3.85-5.65) 06/13/24 21:22 Hgb 13.60 g/dL (11.27-16.99) 06/13/24 21:22 Hct 42.9 % (36-47) 06/13/24 21:22 MCV 91.5 fl (85-98) 06/13/24 21:22 MCH 29.0 pg (27-33) 06/13/24 21: MCHC 31.7 g/dL (30-55) 06/13/24 21:22 RDW 12.6 % (12.1-15.1) 06/13/24 21: Plt Count 389 10^3/cmm (157-399) 06/13/24 21: MPV 9.2 fL (7.4-10.4) 06/13/24 21: Neut % (Auto) 61.0 % 06/13/24 21: Lymph % (Auto) 28.4 % 06/13/24 21: Taylor % (Auto) 5.2 % 06/13/24 21:22 Eos % (Auto) 4.1 % 06/13/24 21: Baso % (Auto) 0.7 % 06/13/24: Neut # (Auto) 6.53 10^3/uL (1.8-7.7) 06/13/24 21: Lymph # (Auto) 3.0 10^3/uL (0.8-4.8) 06/13/24 21: Taylor # (Auto) 0.6 10^3/uL (0.2-0.9) 06/13/24 21:22 Eos # (Auto) 0.4 10^3/uL (0.0-0.8) 06/13/24: Baso # (Auto) 0.1 10^3/uL (0.0-0.1) 06/13/24: Nucleated RBC % (auto) 0 % 06/13/24: Nucleated RBCs # 0.0 /100WBC 06/13/24 21:22 Sodium 139 mmol/L (136-145) 06/13/24 21: Potassium 3.5 mmol/L (3.5-5.1) 06/13/24 21:22 Chloride 102 mmol/L (98-107) 06/13/24 21:22 Carbon Dioxide 26 mmol/L (22-29) 06/13/24 21:22 Anion Gap 14.5 (5-19) 06/13/24 21:22 BUN 10 mg/dL (6-20) 06/13/24 21:22 Creatinine 0.7 mg/dL (0.5-0.9) 06/13/24 21:22 GFR Calculation 97.6 mL/min (90-130) 06/13/24 21:22 Glucose 93 mg/dL (65-115) 06/13/24 21:22 Calculated Osmolality 287 mOsm/kg (285-295) 06/13/24 21:22 Calcium 9.3 mg/dL (8.5-10.5) 06/13/24 21:22 Total Bilirubin 0.2 mg/dL (0.15-1.2) 06/13/24 21:22 AST 15 U/L (0-32) 06/13/24 21:22 ALT 20 U/L (0-33) 06/13/24 21:22 Alkaline Phosphatase 89 U/L (35-105) 06/13/24 21:22 Troponin T Baseline < 6 ng/L (0-10) 06/13/24 21:22 Total Protein 6.9 g/dL (6.6-8.7) 06/13/24 21:22 Albumin 4.4 g/dL (3.5-5.2) 06/13/24 21:22 Globulin 2.5 g/dL (1.3-4.6) 06/13/24 21:22 All radiology interpretation(s) finalized by discharge Discharge Plan Discharge Patient Disposition: Home Clinical Impression: Muscular chest pain Condition: Stable Prescriptions: New cyclobenzaprine 5 mg tablet 5 mg PO TID PRN (Reason: muscle spasm) Qty: 20 0RF No Action ParaGard T 380A 380 square mm intrauterine device intrauterine dextroamphetamine-amphetamine 20 mg capsule,extended release 24hr 20 mg PO QAM 30 Days Qty: 30 0RF Rx Instructions: Take one capsule by mouth every morning vilazodone 40 mg tablet 40 mg PO DAILY Qty: 30 2RF Rx Instructions: Take one tablet daily with food dextroamphetamine-amphetamine 20 mg capsule,extended release 24hr 20 mg PO QAM 30 Days Qty: 30 0RF Rx Instructions: Take one capsule by mouth every morning dextroamphetamine-amphetamine 20 mg capsule,extended release 24hr 20 mg PO .q am 30 Days Qty: 30 0RF Rx Instructions: Take one capsule by mouth every morning dextroamphetamine-amphetamine 20 mg capsule,extended release 24hr 20 mg PO QAM 30 Days Qty: 30 0RF Rx Instructions: Take one capsule by mouth every morning Discharge Orders: Discharge ED (Routine); Ordered 06/13/24 Ordered By: Gomez Tirado Discharge Diet: Usual diet Discharge Activity: Increase activity as tolerated Patient Instructions: Chest Pain (ED), Pain Management Activity Restrictions/Additional Instructions: No acute abnormalities were noted on your labs, EKG, or chest x-ray today. The chest pain is likely muscular in nature. You did receive ketorolac while in the emergency department and a prescription of cyclobenzaprine has been sent to your pharmacy. Please do not drive or operate heavy machinery while taking cyclobenzaprine. You may use [id number] ibuprofen or naproxen to help with inflammation Follow-up with primary care, call Sunday with an update of symptoms and to discuss a recheck Return to the emergency department if any rapid worsening symptoms, difficulty breathing, shortness of breath, persistent chest pain, and as needed. Print Language: Italian Coding Level of Care Code ED Microfilm Operator for Cameron Flores
--- NOTE | 2024-06-13 21:28 | ECG_ITS ---
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 Measurements Intervals [place] Rate: 69 P: 27 FL: 151 QRS: 68 QRSD: 92 T: 40 QT: 381 QTc: 410 Interpretive Statements SINUS RHYTHM Compared to ECG 06/13/2024 20:26:02 No significant changes Electronically Signed On 06-16-2024 09:21:53 CDT by Thomas Dawkins M.D. [email or web address]
[2024-06-13 21:33] LABS: Basophils # 0.1 10^3/uL (0.0-0.1); Basophils % 0.7 %; Eosinophils # 0.4 10^3/uL (0.0-0.8); Eosinophils % 4.1 %; Hematocrit 42.9 % (36-47); Lymphocytes % 28.4 %; Mean Corpuscular HGB Conc 31.7 g/dL (30-55); Mean Corpuscular Volume 91.5 fl (85-98); Mean Platelet Volume 9.2 fL (7.4-10.4); Monocytes # 0.6 10^3/uL (0.2-0.9); Monocytes % 5.2 %; Neutrophils # 6.53 10^3/uL (1.8-7.7); Nucleated Red Blood Cells % 0 %; Platelet Count 389 10^3/cmm (157-399); Red Blood Count 4.69 10^6/uL (3.85-5.65); Red Cell Distribution Width 12.6 % (12.1-15.1); White Blood Count 10.71 10^3/uL (3.29-11.43)
[2024-06-13 21:39] VITALS: BP 131/76; PULSE 80; RESP 19; O2SAT 98
[2024-06-13 21:44] LABS: Troponin(5th) Baseline < 6 ng/L (0-10)
[2024-06-13 21:49] LABS: Alanine Aminotransferase 20 U/L (0-33); Albumin Level 4.4 g/dL (3.5-5.2); Alkaline Phosphatase 89 U/L (35-105); Anion Gap 14.5 (5-19); Aspartate Amino Transferase 15 U/L (0-32); Blood Urea Nitrogen 10 mg/dL (6-20); Calcium 9.3 mg/dL (8.5-10.5); Carbon Dioxide 26 mmol/L (22-29); Chloride 102 mmol/L (98-107); Creatinine Clr Calc Pharmacy 150.3871; Globulin 2.5 g/dL (1.3-4.6); Glomerular Filtration Rate 97.6 mL/min (90-130); Glucose 93 mg/dL (65-115); Osmolality Calculated 287 mOsm/kg (285-295); Potassium 3.5 mmol/L (3.5-5.1); Sodium 139 mmol/L (136-145); Total Bilirubin 0.2 mg/dL (0.15-1.2); Total Protein 6.9 g/dL (6.6-8.7)
[2024-06-13] MEDS: ketorolac 60 mg/2 mL INJ IM (22:13)
[2024-06-13 22:16] VITALS: BP 124/76; PULSE 78; RESP 19; O2SAT 99
[2024-06-13 22:56] VITALS: BP 118/82; PULSE 83; RESP 16; O2SAT 97
== END 2024-06-13 22:56 | disposition home or self-care (01) ==
PROVIDERS: Emergency Provider Nurse Practitioner
DX: R07.89 Other chest pain (principal)
CPT/HCPCS: 36415; 71045; 80053; 84484; 85025; 96372; 99285; J1885